=== PATIENT | male | born 1980 | race African-American/Black ===

== ENCOUNTER 2016-12-01 16:29 | Emergency (ER) | payer SELFPAY ==
[2016-12-01 16:43] VITALS: BMI 23.6
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
[2016-12-01 17:39] LABS: BLOOD UREA NITROGEN 13 mg/dL (7-18); CARBON DIOXIDE 15.6 mmol/L (21-32); CHLORIDE 97 mmol/L (98-107); COR NA(FOR HYPERGLY) 141 mmol/L (136-145); CREATININE 1.16 mg/dL (0.70-1.30); GLUCOSE 123 mg/dL (65-99); SODIUM 140 mmol/L (136-145); eGFR BLACK RACES > 60 (>60); eGFR NON BLACK RACES > 60 (>60)
[2016-12-01 17:43] LABS: ALANINE AMINOTRANSFERASE 46 Units/L (12-78); ALBUMIN 4.5 g/dL (3.4-5.0); ALKALINE PHOSPHATASE 126 Units/L (46-116); ASPARTATE AMINO TRANSFERASE 76 Units/L (15-37); MAGNESIUM 2.3 mg/dL (1.7-2.9); TOTAL PROTEIN 8.7 g/dL (6.4-8.2)
[2016-12-01] MEDS ORDERED: DILANTIN INJ 100 MG VIAL IVP ONE (17:51)
[2016-12-01] MEDS ORDERED: CEREBYX INJ IVP ONE (18:02)
[2016-12-01 18:16] LABS: BASOPHILS # (AUTO) 0.1 X10^3/uL (0.0-0.1); BASOPHILS % (AUTO) 0.7 % (0.2-1.0); EOSINOPHILS # (AUTO) 0.1 x10^3/uL (0.0-0.2); EOSINOPHILS % (AUTO) 0.6 % (0.9-2.9); HEMOGLOBIN 14.6 g/dL (13.5-18.0); LYMPHOCYTES # (AUTO) 0.9 X10^3/uL (1.3-2.9); LYMPHOCYTES % (AUTO) 6.8 % (21.0-51.0); MEAN CORPUSCULAR HEMOGLOBIN 34.7 pg (27.0-34.0); MEAN PLATELET VOLUME 9.5 fL (7.4-11.0); MONOCYTES % (AUTO) 8.1 % (0.0-13.0); NEUTROPHILS # (AUTO) 10.7 x10^3/uL (2.2-4.8); NEUTROPHILS % (AUTO) 83.8 % (42.0-75.0); PLATELET COUNT 89 X10^3/uL (150.0-450.0); RED BLOOD COUNT 4.22 X10^6/uL (4.7-6.0); RED CELL DISTRIBUTION WIDTH 13.2 % (11.6-16.5); WHITE BLOOD COUNT 12.7 X10^3/uL (3.6-10.0)
[2016-12-01] MEDS ORDERED: NS 100 ML IV 100 ML IV ONE (18:18)
[2016-12-01] MEDS ORDERED: CEREBYX INJ ONE (18:19)
[2016-12-01 18:20] LABS: PLATELET MORPHOLOGY COMMENT NORMAL (NORMAL)
[2016-12-01 19:03] VITALS: BP 133/66
== END 2016-12-01 19:01 | disposition home or self-care (01) ==
LOC: ER 16:29
DX: R56.9 Unspecified convulsions (principal)
CPT/HCPCS: 36415; 80053; 80185; 83735; 85025; 93041; 96365; 96374; 99283; S0078

== ENCOUNTER 2017-02-25 05:49 | Emergency (ER) | payer SELFPAY ==
[2017-02-25] MEDS ORDERED: NS 1000 ML 1,000 ML IV ONE ×2 (06:00→06:07)
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
[2017-02-25 06:05] VITALS: BMI 15.6
[2017-02-25] MEDS ORDERED: NS 1000 ML 1,000 ML ONE ×2 (06:06→08:16)
[2017-02-25 06:15] LABS: BILIRUBIN,URINE NEGATIVE (NEGATIVE); BLOOD/HEMOGLOBIN,URINE NEGATIVE (NEGATIVE); GLUCOSE, URINE NEGATIVE (NEGATIVE); KETONES,URINE NEGATIVE (NEGATIVE); LEUKOCYTE ESTERASE ,URINE NEGATIVE (NEGATIVE); NITRITES,URINE NEGATIVE (NEGATIVE); PROTEIN,URINE NEGATIVE (NEGATIVE); UROBILINOGEN,URINE NORMAL (NORMAL)
[2017-02-25] MEDS ORDERED: ZOFRAN INJ 4 MG VIAL IVP ONE (06:22)
[2017-02-25] MEDS ORDERED: ZOFRAN INJ 4 MG VIAL ONE (06:23)
[2017-02-25 06:25] LABS: APPEARANCE,URINE CLEAR (CLEAR); BACTERIA,URINE NEGATIVE /HPF (NEGATIVE); COLOR,URINE YELLOW (YELLOW); RBC,URINE NONE SEEN /HPF (NEGATIVE); SQUAMOUS EPITHELIAL CELL,UR RARE /HPF (NEGATIVE)
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
[2017-02-25] MEDS ORDERED: HYDROGEN PEROXIDE 3% ONE (06:45)
[2017-02-25 06:52] LABS: BASOPHILS % (AUTO) 0.6 % (0.2-1.0); EOSINOPHILS % (AUTO) 0.6 % (0.9-2.9); HEMOGLOBIN 11.7 g/dL (13.5-18.0); LYMPHOCYTES # (AUTO) 2.3 X10^3/uL (1.3-2.9); LYMPHOCYTES % (AUTO) 34.8 % (21.0-51.0); MEAN CORPUSCULAR HEMOGLOBIN 35.5 pg (27.0-34.0); MEAN CORPUSCULAR HGB CONC 34.4 g/dL (33.0-35.0); MEAN CORPUSCULAR VOLUME 103.2 fL (80.0-100.0); MEAN PLATELET VOLUME 7.4 fL (7.4-11.0); MONOCYTES # (AUTO) 0.4 x10^3/uL (0.3-0.8); MONOCYTES % (AUTO) 6.5 % (0.0-13.0); NEUTROPHILS # (AUTO) 3.9 x10^3/uL (2.2-4.8); NEUTROPHILS % (AUTO) 57.5 % (42.0-75.0); PLATELET COUNT 166 X10^3/uL (150.0-450.0); RED CELL DISTRIBUTION WIDTH 12.9 % (11.6-16.5); WHITE BLOOD COUNT 6.7 X10^3/uL (3.6-10.0)
[2017-02-25 07:01] LABS: ALANINE AMINOTRANSFERASE 24 Units/L (12-78); ALBUMIN 3.5 g/dL (3.4-5.0); ALKALINE PHOSPHATASE 86 Units/L (46-116); ASPARTATE AMINO TRANSFERASE 29 Units/L (15-37); BLOOD UREA NITROGEN 4 mg/dL (7-18); CALCIUM 7.6 mg/dL (8.5-10.1); CARBON DIOXIDE 23.7 mmol/L (21-32); CHLORIDE 106 mmol/L (98-107); COR NA(FOR HYPERGLY) 145 mmol/L (136-145); CREATININE 0.67 mg/dL (0.70-1.30); GLUCOSE 112 mg/dL (65-99); SODIUM 145 mmol/L (136-145); TOTAL PROTEIN 6.8 g/dL (6.4-8.2); eGFR BLACK RACES > 60 (>60); eGFR NON BLACK RACES > 60 (>60)
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
[2017-02-25] MEDS ORDERED: KEFLEX CAP 500 MG PO ONE (07:29)
[2017-02-25] MEDS ORDERED: ROCEPHIN VIAL 1 GM 1 GM in NS 50 ML IV + SPIKE MINIBAG* 50 ML IV ONE (08:00)
[2017-02-25] MEDS ORDERED: ROCEPHIN 1 GM IV PREMIX * OUT OF STOCK 50 ML IV ONE (08:01)
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
[2017-02-25] MEDS ORDERED: DILANTIN INJ 100 MG VIAL IVP ONE (08:08)
[2017-02-25] MEDS ORDERED: CEREBYX INJ IVP ONE (08:11)
[2017-02-25] MEDS ORDERED: CEREBYX INJ ONE ×2 (08:12)
[2017-02-25] MEDS ORDERED: NS 50 ML IV 50 ML IV ONE (08:13)
[2017-02-25 08:27] VITALS: BP 106/55
== END 2017-02-25 09:14 | disposition short-term general hospital (02) ==
LOC: ER 05:49
PROC: 0T9B70Z Drainage of Bladder with Drainage Device, Via Natural or Artificial Opening (ICD-10-PCS; principal; 2017-02-25)
DX: S21.112A Laceration without foreign body of left front wall of thorax without penetration into thoracic cavity, initial encounter (principal); F14.10 Cocaine abuse, uncomplicated; F10.10 Alcohol abuse, uncomplicated; X99.9XXA Assault by unspecified sharp object, initial encounter; Y92.9 Unspecified place or not applicable
CPT/HCPCS: 36415; 51702; 71010; 71250; 72125; 80053; 80185; 80307; 80320; 81001; 85025; 93005; 93010; 93041; 96365; 96367; 96374; 96375; 99284; 99285; A4222; Q2009; S0078; G0434; G6040; J0696; J2405

== ENCOUNTER 2017-06-29 23:51 | Emergency (ER) | payer SELFPAY ==
[2017-06-30 00:19] VITALS: BP 128/71; BMI 23.5
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
[2017-06-30] MEDS ORDERED: XYLOCAINE 1 % (PLAIN) ONE (00:36)
[2017-06-30] MEDS ORDERED: HIBICLENS WASH ONE (00:37)
[2017-06-30] MEDS ORDERED: HYDROGEN PEROXIDE 3% ONE (00:59)
[2017-06-30] MEDS ORDERED: ADACEL TDaP IM ONE ×2 (01:12→01:13)
== END 2017-06-30 01:23 | disposition home or self-care (01) ==
LOC: ER 23:51
PROC: 0WQ20ZZ Repair Face, Open Approach (ICD-10-PCS; principal; 2017-06-29)
DX: S01.112A Laceration without foreign body of left eyelid and periocular area, initial encounter (principal); W19.XXXA Unspecified fall, initial encounter; Y92.019 Unspecified place in single-family (private) house as the place of occurrence of the external cause
CPT/HCPCS: 90471; 99282; J2001

== ENCOUNTER 2018-01-06 15:13 | Emergency (ER) | payer SELFPAY ==
[2018-01-06 15:22] VITALS: BP 121/80; BMI 25.8
--- NOTE | 2018-01-06 15:22 | DR.GENAD ---
HPI - PCP Primary Care Physician: [id number] - Complaint/Symptoms Chief Complaint Doctors Comments: Patient presented to the ED with complaint of having a seizure just prior to arrival. The witness of the seizure is not present. Patient states that he had seizure since 2013. He is on phenytoin and takes 400mg daily. The witness reports via phone that he was shaking for 2-3 minutes. Patient is followed by local physician. No recent seizure. PMH - PMH Past Medical History: Asthma, Seizures Past Surgical History: Yes Surgical History: Abdominal Surgery - Family History Family Medical History: [place], Coronary Artery Disease, Hypertension - Social History Do you use any recreational Drugs:: Yes (thc) ROS - Review of Systems Eyes: No Symptoms Reported ENTM: No Symptoms Reported Respiratoy: No Symptoms Reported Cardiovascular: No Symptoms Reported Gastrointestinal/Abdominal: No Symptoms Reported Genitourinary: No Symptoms Reported Neurological: No Symptoms Reported Musculoskeletal: No Symptoms Reported Integumentary: No Symptoms Reported Hematologic/Lymphatic: No Symptoms Reported Endocrine: No Symptoms Reported Psychiatric: No Symptoms Reported All Other Systems: Reviewed and Negative PE - Vital Signs Vitals: Temperature 98.6 F Pulse Rate 111 Respiratory Rate 18 Blood Pressure [Left Arm] 106/55 Blood Pressure [Right Arm] 137/62 Blood Pressure 121/80 O2 Sat by Pulse Oximetry 100 - General Limitations: No Limitations General Appearance: Alert, In No Apparent Distress - Head Head Exam: Normal Inspection, Atraumatic - Eyes Eye exam: Normal Appearance, PERRL, EOMI - ENT ENT Exam: Normal Exam, Mucous Membranes Moist TM/Canal Exam: Bilateral Normal Nose Exam: Normal Nose Exam Mouth Exam: Normal Inspection Throat Exam: Normal Inspection - Neck Neck Exam: Normal Inspection, Full ROM - Chest Chest Inspection: Normal Inspection, Symmetric Chest Wall Rise - Respiratory Respiratory Exam: Normal Lung Sounds Bilat Respiratory Exam: Bilateral Clear to Auscultation - Cardiovascular Cardiovascular Exam: Regular Rate, Normal Rhythm - Abdominal Exam Abdominal Exam: Normal Inspection Abdominal Tenderness: negative: RUQ, RLQ, LUQ, LLQ, Epigastrium, Suprapubic, Diffuse, Mild, Moderate, Severe, Other - Extremities Extremities Exam: Normal Inspection, Full ROM - Back Back Exam: Normal Inspection, Full ROM - Neurologic Neurological Exam: Alert, Oriented X3, CN II-XII Intact - Psychiatric Psychiatric Exam: Normal Affect, Normal Mood - Skin Skin Exam: Warm, Dry, Intact Course - Treatment Treatment: Dilantin 300mg po - Reevaluation 1st: Improved - Education/Counseling Educated On: Treatment, Diagnosis, Prognosis, Needs for Follow Up ROR - Labs Reviewed Result Diagrams: 01/06/18 15:40 01/06/18 15:40 Laboratory: WBC 8.8 X10^3/uL (3.6-10.0) 01/06/18 15:40 RBC 3.84 X10^6/uL (4.7-6.0) L 01/06/18 15:40 Hgb 13.9 g/dL (13.5-18.0) 01/06/18 15:40 Hct 40.3 % (42.0-54.0) L 01/06/18 15:40 MCV 104.8 fL (80.0-100.0) H 01/06/18 15:40 MCH 36.2 pg (27.0-34.0) H 01/06/18 15:40 MCHC 34.5 g/dL (33.0-35.0) 01/06/18 15:40 RDW 12.8 % (11.6-16.5) 01/06/18 15:40 Plt Count 178 X10^3/uL (150.0-450.0) 01/06/18 15:40 MPV 7.5 fL (7.4-11.0) 01/06/18 15:40 Neut % (Auto) 72.2 % (42.0-75.0) 01/06/18 15:40 Lymph % (Auto) 17.0 % (21.0-51.0) L 01/06/18 15:40 [place] % (Auto) 9.4 % (0.0-13.0) 01/06/18 15:40 Eos % (Auto) 0.9 % (0.9-2.9) 01/06/18 15:40 Baso % (Auto) 0.5 % (0.2-1.0) 01/06/18 15:40 Neut # (Auto) 6.4 x10^3/uL (2.2-4.8) H 01/06/18 15:40 Lymph # (Auto) 1.5 X10^3/uL (1.3-2.9) 01/06/18 15:40 [place] # (Auto) 0.8 x10^3/uL (0.3-0.8) 01/06/18 15:40 Eos # (Auto) 0.1 x10^3/uL (0.0-0.2) 01/06/18 15:40 Baso # (Auto) 0.0 X10^3/uL (0.0-0.1) 01/06/18 15:40 Absolute Nucleated RBC 0.1 /100WBC 01/06/18 15:40 Sodium 137 mmol/L (136-145) 01/06/18 15:40 Corrected Sodium TNP 01/06/18 15:40 Potassium 3.4 mmol/L (3.5-5.1) L 01/06/18 15:40 Chloride 97 mmol/L (98-107) L 01/06/18 15:40 Carbon Dioxide 24.1 mmol/L (21-32) 01/06/18 15:40 BUN 7 mg/dL (7-18) 01/06/18 15:40 Creatinine 1.11 mg/dL (0.70-1.30) 01/06/18 15:40 Est GFR (MDRD) Af Amer > 60 (>60) 01/06/18 15:40 Est GFR (MDRD) Non-Af > 60 (>60) 01/06/18 15:40 Glucose 94 mg/dL (65-99) 01/06/18 15:40 Calcium 8.5 mg/dL (8.5-10.1) 01/06/18 15:40 Corrected Calcium TNP 01/06/18 15:40 Total Bilirubin 0.30 mg/dL (0.2-1.0) 01/06/18 15:40 AST 78 Units/L (15-37) H 01/06/18 15:40 ALT 42 Units/L (12-78) 01/06/18 15:40 Alkaline Phosphatase 122 Units/L (46-116) H 01/06/18 15:40 Total Protein 8.4 g/dL (6.4-8.2) H 01/06/18 15:40 Albumin 4.2 g/dL (3.4-5.0) 01/06/18 15:40 Globulin 4.2 g/dL (2.5-4.5) 01/06/18 15:40 Albumin/Globulin Ratio 1.0 Ratio (1.1-2.1) L 01/06/18 15:40 Specimen Type Clean catch urine 01/06/18 15:55 Urine Color Dark yellow (YELLOW) 01/06/18 15:55 Urine Appearance Slightly hazy (CLEAR) 01/06/18 15:55 Urine pH 6.5 (5.0 - 8.0) 01/06/18 15:55 Ur Specific [place] 1.020 (1.000-1.030) 01/06/18 15:55 Urine Protein 3+ (NEGATIVE) 01/06/18 15:55 Urine Glucose (UA) Negative (NEGATIVE) 01/06/18 15:55 Urine Ketones 1+ (NEGATIVE) 01/06/18 15:55 Urine Occult Blood 3+ (NEGATIVE) 01/06/18 15:55 Urine Nitrite Negative (NEGATIVE) 01/06/18 15:55 Urine Bilirubin Negative (NEGATIVE) 01/06/18 15:55 Urine Urobilinogen 1+ (NORMAL) 01/06/18 15:55 Ur Leukocyte Esterase Negative (NEGATIVE) 01/06/18 15:55 Urine RBC 0-2 /HPF (NONE SEEN) 01/06/18 15:55 Urine WBC None seen /HPF (NONE SEEN) 01/06/18 15:55 Ur Squamous Epith Cells Rare /HPF (NEGATIVE) 01/06/18 15:55 Urine Bacteria Negative /HPF (NEGATIVE) 01/06/18 15:55 Hyaline Casts Rare /LPF (NEGATIVE) 01/06/18 15:55 Ur Culture Indicated? No/not indicated 01/06/18 15:55 Phenytoin 7.0 ug/mL (10-20) L 01/06/18 15:40 - Diagnosis Discharge Problem: Seizure, Subtherapeutic serum dilantin level - Discharge Plan Condition: Stable - Follow ups/Referrals Follow ups/Referrals: BLAKE LEIJA [Primary Care Provider] - 3 days - Instructions
[2018-01-06 15:50] LABS: BASOPHILS % (AUTO) 0.5 % (0.2-1.0); EOSINOPHILS # (AUTO) 0.1 x10^3/uL (0.0-0.2); EOSINOPHILS % (AUTO) 0.9 % (0.9-2.9); HEMATOCRIT 40.3 % (42.0-54.0); HEMOGLOBIN 13.9 g/dL (13.5-18.0); LYMPHOCYTES # (AUTO) 1.5 X10^3/uL (1.3-2.9); MEAN CORPUSCULAR HEMOGLOBIN 36.2 pg (27.0-34.0); MEAN CORPUSCULAR HGB CONC 34.5 g/dL (33.0-35.0); MEAN CORPUSCULAR VOLUME 104.8 fL (80.0-100.0); MEAN PLATELET VOLUME 7.5 fL (7.4-11.0); MONOCYTES # (AUTO) 0.8 x10^3/uL (0.3-0.8); MONOCYTES % (AUTO) 9.4 % (0.0-13.0); NEUTROPHILS # (AUTO) 6.4 x10^3/uL (2.2-4.8); NEUTROPHILS % (AUTO) 72.2 % (42.0-75.0); PLATELET COUNT 178 X10^3/uL (150.0-450.0); RED BLOOD COUNT 3.84 X10^6/uL (4.7-6.0); RED CELL DISTRIBUTION WIDTH 12.8 % (11.6-16.5); WHITE BLOOD COUNT 8.8 X10^3/uL (3.6-10.0)
[2018-01-06 16:01] LABS: BILIRUBIN,URINE NEGATIVE (NEGATIVE); BLOOD/HEMOGLOBIN,URINE 3+ (NEGATIVE); GLUCOSE, URINE NEGATIVE (NEGATIVE); KETONES,URINE 1+ (NEGATIVE); LEUKOCYTE ESTERASE ,URINE NEGATIVE (NEGATIVE); NITRITES,URINE NEGATIVE (NEGATIVE); PH,URINE 6.5 (5.0 - 8.0); PROTEIN,URINE 3+ (NEGATIVE); UROBILINOGEN,URINE 1+ (NORMAL)
[2018-01-06 16:02] LABS: ALANINE AMINOTRANSFERASE 42 Units/L (12-78); ALBUMIN 4.2 g/dL (3.4-5.0); ALKALINE PHOSPHATASE 122 Units/L (46-116); ASPARTATE AMINO TRANSFERASE 78 Units/L (15-37); BLOOD UREA NITROGEN 7 mg/dL (7-18); CALCIUM 8.5 mg/dL (8.5-10.1); CARBON DIOXIDE 24.1 mmol/L (21-32); CHLORIDE 97 mmol/L (98-107); CREATININE 1.11 mg/dL (0.70-1.30); SODIUM 137 mmol/L (136-145); TOTAL PROTEIN 8.4 g/dL (6.4-8.2); eGFR BLACK RACES > 60 (>60); eGFR NON BLACK RACES > 60 (>60)
[2018-01-06 16:03] LABS: APPEARANCE,URINE SLIGHTLY HAZY (CLEAR); COLOR,URINE DARK YELLOW (YELLOW)
[2018-01-06] MEDS ORDERED: DILANTIN CAP 100 MG EXT REL PO ONE ×2 (16:08)
[2018-01-06 16:11] LABS: RBC,URINE 0-2 /HPF (NONE SEEN)
[2018-01-06 16:12] LABS: BACTERIA,URINE NEGATIVE /HPF (NEGATIVE); HYALINE CASTS, URINE RARE /LPF (NEGATIVE); SQUAMOUS EPITHELIAL CELL,UR RARE /HPF (NEGATIVE)
== END 2018-01-06 17:04 | disposition home or self-care (01) ==
LOC: ER 15:15
DX: R56.9 Unspecified convulsions (principal); R89.2 Abnormal level of other drugs, medicaments and biological substances in specimens from other organs, systems and tissues
CPT/HCPCS: 36415; 80053; 80185; 80307; 81001; 85025; 96365; 99282; 99283; G0434

== ENCOUNTER 2023-03-28 09:45 | Inpatient (IN) ==
--- NOTE | 2023-03-28 10:06 | DR.EXTPAIN ---
HPI Time seen Time Seen by Provider: 03/28/23 10:06 HPI Comment HPI Comment: Patient is 43yr old male in er after seizure. Patient is agitated and confused. Started having seizure . Patients mother said he has being confused for few days. He has urinary incontinence and is having increasing w eakness. Patient is hallucinating mainly visual. He has history of alcohol dependency. drinking less currently. Complaint/Symptoms Chief Complaint Doctor Comments: Seizure, agitated and confused. COVID-19 Coronavirus risk:travel/contact w/high risk person: No Has patient experienced Coronavirus symptoms: No Nurses notes reviewed Nurses Notes Review: Yes PMH PMH Past Medical History: Seizures Past Surgical History: Yes Surgical History: Abdominal Surgery Family History Family Medical History: [place], Coronary Artery Disease and Hypertension Social History Do you use any recreational Drugs:: Yes ROS Review of Systems Constitutional: Other (Agitated..); negative Fever Eyes: No Symptoms Reported ENTM: No Symptoms Reported Respiratoy: No Symptoms Reported; negative Moist Cough or Short of Breath Cardiovascular: No Symptoms Reported; negative Chest Pain Gastrointestinal/Abdominal: No Symptoms Reported Genitourinary: No Symptoms Reported Neurological: Seizure Musculoskeletal: No Symptoms Reported Integumentary: No Symptoms Reported Hematologic/Lymphatic: No Symptoms Reported Endocrine: No Symptoms Reported Psychiatric: No Symptoms Reported All Other Systems: Reviewed and Negative PE Vital Signs Vitals: Vital Signs Temperature 98.1 F Pulse Rate 120 Pulse Rate 123 Pulse Rate 118 Pulse Rate 119 Pulse Rate 121 Pulse Rate 121 Pulse Rate 122 Pulse Rate 127 Pulse Rate 126 Pulse Rate 125 Pulse Rate 127 Pulse Rate 134 Pulse Rate 134 Pulse Rate 138 Pulse Rate 135 Pulse Rate 145 Respiratory Rate 20 Respiratory Rate 37 Respiratory Rate 32 Respiratory Rate 38 Respiratory Rate 33 Respiratory Rate 39 Respiratory Rate 41 Respiratory Rate 34 Respiratory Rate 44 Respiratory Rate 40 Respiratory Rate 33 Respiratory Rate 30 Respiratory Rate 34 Respiratory Rate 40 Respiratory Rate 43 Respiratory Rate 35 Respiratory Rate 24 Blood Pressure 118/67 O2 Sat by Pulse Oximetry 97 O2 Sat by Pulse Oximetry 98 O2 Sat by Pulse Oximetry 97 O2 Sat by Pulse Oximetry 97 O2 Sat by Pulse Oximetry 97 O2 Sat by Pulse Oximetry 98 O2 Sat by Pulse Oximetry 96 O2 Sat by Pulse Oximetry 96 O2 Sat by Pulse Oximetry 95 O2 Sat by Pulse Oximetry 97 O2 Sat by Pulse Oximetry 97 General Limitations: No Limitations General Appearance: In No Apparent Distress and Other (AMS.) Head Head Exam: Normal Inspection, Atraumatic and Normocephalic Eyes Eye exam: Normal Appearance and PERRL; negative Scleral Icterus or Conjunctival Injection ENT ENT Exam: Normal Exam, Normal External Ear Exam and TM's Normal Bilaterally; negative Normal Oropharynx Neck Neck Exam: Normal Inspection and Trachea Midline; negative Tenderness Chest Chest Inspection: Normal Inspection and Symmetric Chest Wall Rise; negative Tenderness Respiratory Respiratory Exam: Normal Lung Sounds Bilat; negative Accessory Muscle Use, Chest Wall Tenderness or Respiratory Distress Respiratory Exam: Bilateral: Clear to Auscultation Cardiovascular Cardiovascular Exam: Regular Rate, Normal Rhythm and Normal Heart Sounds; negative Systolic Murmur or Diastolic Murmur Abdominal Exam Abdominal Exam: Normal Inspection, Normal Bowel Sounds and Soft; negative Tenderness Extremities Extremities Exam: Normal Inspection and Normal Capillary Refill Back Back Exam: Normal Inspection; negative (R) CVA Tenderness or (L) CVA Tenderness Neurological Neurological Exam: Alert; negative Oriented X3 or Motor Sensory Deficit Psychiatric Psychiatric Exam: Agitated Skin Skin Exam: Intact MDM Differential Diagnosis Differential Diagnosis: Other (Seizure, AMS, hallucination, alcohol withdrawal, electrolyte imbalance, CVA.) COURSE Treatment Treatment: See orders done while patient was in er. NS 1L IV bolus while in er. Merline estrada in er to see patient. will admit patient. Orders done by him. Consultation Consultation Comments: Discussed patient with dr. Rick. He will admit patient. ROR Labs Reviewed Laboratory Results Reviewed?: Yes 04/02/23 05:33 04/02/23 05:33 Laboratory: 03/28/23 11:07 Blood Blood Culture - Final 03/28/23 10:50 Blood Blood Culture - Final 03/28/23 16:32 Sputum - Expectorated Sputum Sputum Culture - Final 03/28/23 16:32 Sputum - Expectorated Sputum - Final WBC 10.3 X10^3/uL (3.6-10.0) H 03/30/23 05:39 RBC 2.76 X10^6/uL (4.7-6.0) L 03/30/23 05:39 Hgb 9.7 g/dL (13.5-18.0) L 03/30/23 05:39 Hct 28.2 % (42.0-54.0) L 03/30/23 05:39 MCV 102.0 fL (80.0-100.0) H 03/30/23 05:39 MCH 35.0 pg (27.0-34.0) H 03/30/23 05:39 MCHC 34.3 g/dL (33.0-35.0) 03/30/23 05:39 RDW 13.0 % (11.6-16.5) 03/30/23 05:39 Plt Count 310 X10^3/uL (150.0-450.0) 03/30/23 05:39 Plt Count Comment Adequate (ADEQUATE) 03/28/23 14:26 MPV 7.1 fL (7.4-11.0) L 03/30/23 05:39 Neut % (Auto) 78.9 % (42.0-75.0) H 03/30/23 05:39 Lymph % (Auto) 7.5 % (21.0-51.0) L 03/30/23 05:39 [place] % (Auto) 12.7 % (0.0-13.0) 03/30/23 05:39 Eos % (Auto) 0.7 % (0.9-2.9) L 03/30/23 05:39 Baso % (Auto) 0.2 % (0.2-1.0) 03/30/23 05:39 Neut # (Auto) 8.1 x10^3/uL (2.2-4.8) H 03/30/23 05:39 Lymph # (Auto) 0.8 X10^3/uL (1.3-2.9) L 03/30/23 05:39 [place] # (Auto) 1.3 x10^3/uL (0.3-0.8) H 03/30/23 05:39 Eos # (Auto) 0.1 x10^3/uL (0.0-0.2) 03/30/23 05:39 Baso # (Auto) 0.0 X10^3/uL (0.0-0.1) 03/30/23 05:39 Absolute Nucleated RBC 0.1 /100WBC 03/30/23 05:39 Total Counted 100 03/28/23 14:26 Neutrophils % (Manual) 83 % (39-76) H 03/28/23 14:26 Band Neutrophils % 2 % (0-10) 03/28/23 14:26 Lymphocytes % (Manual) 7 % (13-43) L 03/28/23 14:26 Monocytes % (Manual) 8 % (4-9) 03/28/23 14:26 Plt Morphology Comment Normal (NORMAL) 03/28/23 14:26 RBC Morphology Normal (NORMAL) 03/28/23 14:26 Sodium 134 mmol/L (136-145) L 03/30/23 05:39 Corrected Sodium TNP 03/30/23 05:39 Potassium 2.8 mmol/L (3.5-5.1) L* 03/30/23 05:39 Chloride 97 mmol/L (98-107) L 03/30/23 05:39 Carbon Dioxide 29.3 mmol/L (21-32) 03/30/23 05:39 BUN 3 mg/dL (7-18) L 03/30/23 05:39 Creatinine 0.48 mg/dL (0.70-1.30) L 03/30/23 05:39 Est GFR (MDRD) Af Amer > 60 (>60) 03/30/23 05:39 Est GFR (MDRD) Non-Af > 60 (>60) 03/30/23 05:39 Glucose 88 mg/dL (65-99) 03/30/23 05:39 Lactic Acid 1.9 mmol/L (0.4-2.0) 03/28/23 10:51 Calcium 8.3 mg/dL (8.5-10.1) L 03/30/23 05:39 Corrected Calcium 9.6 mg/dL (8.5-10.1) 03/30/23 05:39 Magnesium 2.4 mg/dL (2.0-2.9) 03/29/23 05:40 Total Bilirubin 0.60 mg/dL (0.2-1.0) 03/30/23 05:39 AST 56 Units/L (15-37) H 03/30/23 05:39 ALT 20 Units/L (12-78) 03/30/23 05:39 Alkaline Phosphatase 95 Units/L (46-116) 03/30/23 05:39 Ammonia 15 umol/L (11-32) 03/28/23 10:00 Creatine Kinase 84 Units/L (39-308) 03/28/23 10:00 Troponin I High Sens < 4.0 ng/L (4.0-60.0) L 03/28/23 10:00 B-Natriuretic Peptide 94.7 pg/mL (0-79) H 03/28/23 10:00 Total Protein 7.2 g/dL (6.4-8.2) 03/30/23 05:39 Albumin 2.4 g/dL (3.4-5.0) L 03/30/23 05:39 Globulin 4.8 g/dL (2.5-4.5) H 03/30/23 05:39 Albumin/Globulin Ratio 0.5 Ratio (1.1-2.1) L 03/30/23 05:39 Amylase 14 Units/L (25-115) L 03/28/23 10:00 Lipase 18 Units/L (73-393) L 03/28/23 10:00 Vitamin B12 740 pg/mL (193-986) 03/28/23 10:00 Folate 15.6 ng/mL (>8.6) 03/28/23 10:00 Specimen Type Clean catch urine 03/29/23 10:00 Urine Color [place] (YELLOW) 03/29/23 10:00 Urine Appearance Clear (CLEAR) 03/29/23 10:00 Urine pH 6.0 (5.0 - 8.0) 03/29/23 10:00 Ur Specific [place] 1.015 (1.000-1.030) 03/29/23 10:00 Urine Protein 1+ (NEGATIVE) 03/29/23 10:00 Urine Glucose (UA) Negative (NEGATIVE) 03/29/23 10:00 Urine Ketones Negative (NEGATIVE) 03/29/23 10:00 Urine Blood Negative (NEGATIVE) 03/29/23 10:00 Urine Nitrite Negative (NEGATIVE) 03/29/23 10:00 Urine Bilirubin 1+ (NEGATIVE) 03/29/23 10:00 Urine Urobilinogen 4+ (NORMAL) 03/29/23 10:00 Ur Leukocyte Esterase Negative (NEGATIVE) 03/29/23 10:00 Urine RBC None seen /HPF (0-3) 03/29/23 10:00 Urine WBC 0-2 /HPF (0-5) 03/29/23 10:00 Ur Squamous Epith Cells Rare /HPF (NEGATIVE) 03/29/23 10:00 Urine Bacteria Trace /HPF (NEGATIVE) 03/29/23 10:00 Urine Mucus Numerous /HPF (NEGATIVE) 03/29/23 10:00 Ur Culture Indicated? No/not indicated 03/29/23 10:00 Urine Opiates Screen Negative (NEG=<300) 03/29/23 10:00 Urine Methadone Screen Negative (NEG=<300) 03/29/23 10:00 Ur Barbiturates Screen Positive (NEG=<200) 03/29/23 10:00 Levetiracetam 12 ug/mL (10-40) 03/28/23 10:00 Ur Phencyclidine Scrn Negative (NEG=<25) 03/29/23 10:00 Ur Amphetamines Screen Negative (NEG=<1000) 03/29/23 10:00 U Benzodiazepines Scrn Negative (NEG=<200) 03/29/23 10:00 Urine Cocaine Screen Negative (NEG=<300) 03/29/23 10:00 U Marijuana (THC) Screen Negative (NEG=<50) 03/29/23 10:00 Ethyl Alcohol mg/dL < 3 mg/dL (0-19.9) 03/28/23 14:26 Resp Viral Panel (PCR) See scanned report 03/29/23 10:09 XRAY XRAY Interpreted by: Radiologist (Report noted.) Opioid Opioid Risk Tool Family Hx of Substance Abuse: Alcohol Personal Hx of Substance Abuse: Alcohol Age (Lonnie box if 16-45): Yes History of Preadolescent Sexual Abuse: No Total: 1 Total Score Risk Category: Low Risk Copyright: [facility] predicting aberrant behaviors Discharge Plan Diagnosis Discharge Problem: Hypokalemia, Hyponatremia Pneumonia Qualifiers: Pneumonia type: due to unspecified organism Laterality: right Lung location: lower lobe of lung Qualified Code(s): J18.9 - Pneumonia, unspecified organism Alcohol withdrawal seizure Qualifiers: Complication of substance-induced condition: with unspecified complication Qualified Code(s): F10.939 - Alcohol use, unspecified with withdrawal, unspecified AMS (altered mental status) Qualifiers: Altered mental status type: unspecified Qualified Code(s): R41.82 - Altered mental status, unspecified Discharge Plan Patient Disposition: ADMITTED INPATIENT Condition: Stable Discharge Comment: admitted observation
[2023-03-28] MEDS ORDERED: THIAMINE HCL INJ IM ONE (10:30)
[2023-03-28] MEDS ORDERED: NS 1,000 ML IV 1,000 ML IV ONE (10:30)
--- NOTE | 2023-03-28 10:42 | EKG ---
Test Reason : tachycardia Blood Pressure : */* mmHG Vent. Rate : 133 BPM Atrial Rate : 136 BPM P-R Int : 128 ms QRS Dur : 76 ms QT Int : 374 ms P-R-T Axes : * -24 25 degrees QTc Int : 556 ms Sinus tachycardia Otherwise normal ECG No previous ECGs available Confirmed by Richie Copeland ([id number]) on 03/30/2023 7:24:20 AM Referred By: Confirmed By: Richie Copeland
[2023-03-28] MEDS ORDERED: NS 1,000 ML IV 1,000 ML ONE ×2 (10:47→20:25)
[2023-03-28] MEDS ORDERED: ZOSYN VIAL 3.375 GRAMS 3.375 G in NS 100 ML IV 100 ML IV ONE (10:51)
[2023-03-28 10:53] LABS: BASOPHILS # (AUTO) 0.1 X10^3/uL (0.0-0.1); HEMOGLOBIN 10.9 g/dL (13.5-18.0); MEAN PLATELET VOLUME 8.2 fL (7.4-11.0)
[2023-03-28 10:58] LABS: BASOPHILS % (AUTO) 0.6 % (0.2-1.0); HEMATOCRIT 31.4 % (42.0-54.0); LYMPHOCYTES % (AUTO) 6.5 % (21.0-51.0); MEAN CORPUSCULAR HEMOGLOBIN 35.1 pg (27.0-34.0); MEAN CORPUSCULAR HGB CONC 34.7 g/dL (33.0-35.0); MEAN CORPUSCULAR VOLUME 101.4 fL (80.0-100.0); MONOCYTES # (AUTO) 1.6 x10^3/uL (0.3-0.8); MONOCYTES % (AUTO) 9.9 % (0.0-13.0); NEUTROPHILS # (AUTO) 13.1 x10^3/uL (2.2-4.8); PLATELET COUNT 208 X10^3/uL (150.0-450.0); RED CELL DISTRIBUTION WIDTH 13.3 % (11.6-16.5); WHITE BLOOD COUNT 15.8 X10^3/uL (3.6-10.0)
[2023-03-28 11:13] LABS: AMYLASE 14 Units/L (25-115); CHLORIDE 88 mmol/L (98-107); GLUCOSE 106 mg/dL (65-99); eGFR NON BLACK RACES > 60 (>60)
[2023-03-28 11:19] LABS: BAND NEUTROPHILS % 1 % (0-10)
[2023-03-28 11:21] LABS: PLATELET MORPHOLOGY COMMENT NORMAL (NORMAL)
[2023-03-28 11:43] LABS: AMMONIA 15 umol/L (11-32)
[2023-03-28 11:50] LABS: ALANINE AMINOTRANSFERASE 21 Units/L (12-78); ALBUMIN 2.9 g/dL (3.4-5.0); ALKALINE PHOSPHATASE 119 Units/L (46-116); ASPARTATE AMINO TRANSFERASE 57 Units/L (15-37); BLOOD UREA NITROGEN 6 mg/dL (7-18); CALCIUM 8.5 mg/dL (8.5-10.1); CARBON DIOXIDE 28.4 mmol/L (21-32); COR CA(FOR HYPOALB) 9.4 mg/dL (8.5-10.1); CREATINE KINASE 84 Units/L (39-308); CREATININE 0.67 mg/dL (0.70-1.30); LIPASE 18 Units/L (73-393); SODIUM 129 mmol/L (136-145); TOTAL PROTEIN 7.9 g/dL (6.4-8.2)
[2023-03-28 11:53] LABS: POTASSIUM 2.8 mmol/L (3.5-5.1)
--- NOTE | 2023-03-28 12:43 | RAD ---
HISTORYSeizure coughSTUDYPortable AP chestCOMPARISONJanuary 2021FINDINGSHeart size normal with clear left chest. There is a diffuse airspace opacity involving the lower half of the right lung without discrete mass or obvious pleural effusion.IMPRESSIONParenchymal opacity right lower lung consistent with pneumonia. Follow-up indicated.Electronically signed by: LEAH COLLINS (Mar 28, 2023 12:40:24)
--- NOTE | 2023-03-28 12:45 | CT ---
HISTORYamsSTUDYCT brain without IV contrastCOMPARISONNoneTECHNIQUEMultiple axial images of the brain were obtained without IV contrast. Dose reduction techniques including Automated Exposure Control (AEC) and adjustment of mA and kV were utilized.FINDINGSVisualized portions of the paranasal sinuses and mastoid air cells are clear. No calvarial fracture is seen. No acute intracranial hemorrhage or mass effect is seen. There is prominent diffuse volume loss in the brain with compensatory enlargement of the ventricular system. Normal variant margaux cisterna magna.No evidence of acute CVA. Encephalomalacia and gliosis are suspected in the inferior right frontal lobe likely from old CVA or other injury. Likely mild chronic small vessel ischemic changes are present in the supratentorial white matter and basal ganglia.IMPRESSIONOld ischemic changes are seen with prominent diffuse volume loss in the brain. No acute intracranial abnormality is seen.Electronically signed by: Ish Garza (Mar 28, 2023 12:44:03)
[2023-03-28] MEDS ORDERED: K-DUR TAB 20 MEQ PO ONE ×2 (13:54→13:55)
[2023-03-28] MEDS ORDERED: PHENOBARBITAL SODIUM INJ 65 MG VIAL IM PRN (14:19)
[2023-03-28] MEDS ORDERED: MAALOX or MYLANTA PO PRN (14:19)
[2023-03-28] MEDS ORDERED: MILK OF MAGNESIA PO PRN (14:19)
[2023-03-28] MEDS ORDERED: KAOPECTATE (NEW FORMULA) PO PRN (14:19)
[2023-03-28] MEDS ORDERED: MOTRIN TAB 800 MG PO PRN (14:19)
[2023-03-28] MEDS ORDERED: ROCEPHIN VIAL 1 GRAM IM ONE (14:23)
[2023-03-28 14:41] LABS: BASOPHILS # (AUTO) 0.4 X10^3/uL (0.0-0.1); BASOPHILS % (AUTO) 2.4 % (0.2-1.0); HEMATOCRIT 28.6 % (42.0-54.0); HEMOGLOBIN 9.8 g/dL (13.5-18.0); LYMPHOCYTES # (AUTO) 0.8 X10^3/uL (1.3-2.9); LYMPHOCYTES % (AUTO) 4.7 % (21.0-51.0); MEAN CORPUSCULAR HEMOGLOBIN 34.8 pg (27.0-34.0); MEAN CORPUSCULAR HGB CONC 34.3 g/dL (33.0-35.0); MEAN CORPUSCULAR VOLUME 101.5 fL (80.0-100.0); MEAN PLATELET VOLUME 7.8 fL (7.4-11.0); MONOCYTES # (AUTO) 1.6 x10^3/uL (0.3-0.8); MONOCYTES % (AUTO) 9.6 % (0.0-13.0); NEUTROPHILS # (AUTO) 13.6 x10^3/uL (2.2-4.8); NEUTROPHILS % (AUTO) 83.3 % (42.0-75.0); PLATELET COUNT 207 X10^3/uL (150.0-450.0); RED BLOOD COUNT 2.81 X10^6/uL (4.7-6.0); WHITE BLOOD COUNT 16.3 X10^3/uL (3.6-10.0)
[2023-03-28 15:10] LABS: BAND NEUTROPHILS % 2 % (0-10)
[2023-03-28 15:12] LABS: PLATELET MORPHOLOGY COMMENT NORMAL (NORMAL)
[2023-03-28 16:05] VITALS: BMI 21.4
[2023-03-28] MEDS ORDERED: XOPENEX 1.25 MG/3 ML NEBULE NEB ONE (16:19)
[2023-03-28] MEDS: XOPENEX 1.25 MG/3 ML NEBULE NEB SCH ×2 (16:31→17:11)
[2023-03-28] MEDS ORDERED: NS 1,000 ML IV 1,000 ML with MAGNESIUM SULFATE 50% INJ VIAL 1 G, MVI INJ (ADULT) 10 ML IV SCH ×3 (17:00)
[2023-03-28] MEDS: CELEXA PO SCH (17:27)
[2023-03-28] MEDS: PHENOBARBITAL TAB 30 MG (32.4MG) PO SCH ×2 (17:28→20:55)
[2023-03-28] MEDS ORDERED: MAGNESIUM SULFATE 50% INJ VIAL ONE (20:25)
[2023-03-28] MEDS: AMBIEN PO SCH (20:56)
[2023-03-28] MEDS: KEPPRA TAB 500 MG PO SCH (20:56)
[2023-03-28] MEDS: PULMICORT NEB TX 0.5 MG NEB SCH (21:05)
[2023-03-28] MEDS ORDERED: NS 100 ML IV 100 ML ONE (21:30)
[2023-03-28] MEDS: MAGNESIUM SULFATE 1 GRAM/100 mL PREMIX 1 G/100 ML BAG IV SCH (22:15)
[2023-03-29] MEDS: XOPENEX 1.25 MG/3 ML NEBULE NEB SCH ×4 (00:09→16:18)
[2023-03-29] MEDS: MAGNESIUM SULFATE 1 GRAM/100 mL PREMIX 1 G/100 ML BAG IV SCH ×3 (05:14→21:23)
[2023-03-29 06:10] LABS: BASOPHILS % (AUTO) 0.3 % (0.2-1.0); EOSINOPHILS % (AUTO) 0.2 % (0.9-2.9); HEMATOCRIT 27.3 % (42.0-54.0); HEMOGLOBIN 9.4 g/dL (13.5-18.0); LYMPHOCYTES # (AUTO) 0.9 X10^3/uL (1.3-2.9); LYMPHOCYTES % (AUTO) 7.1 % (21.0-51.0); MEAN CORPUSCULAR HGB CONC 34.5 g/dL (33.0-35.0); MEAN CORPUSCULAR VOLUME 101.2 fL (80.0-100.0); MEAN PLATELET VOLUME 7.6 fL (7.4-11.0); MONOCYTES # (AUTO) 1.7 x10^3/uL (0.3-0.8); NEUTROPHILS # (AUTO) 10.3 x10^3/uL (2.2-4.8); NEUTROPHILS % (AUTO) 79.4 % (42.0-75.0); PLATELET COUNT 247 X10^3/uL (150.0-450.0)
[2023-03-29 06:23] LABS: ALANINE AMINOTRANSFERASE 13 Units/L (12-78); ALBUMIN 2.5 g/dL (3.4-5.0); ALKALINE PHOSPHATASE 99 Units/L (46-116); ASPARTATE AMINO TRANSFERASE 28 Units/L (15-37); BLOOD UREA NITROGEN 5 mg/dL (7-18); CALCIUM 8.3 mg/dL (8.5-10.1); CARBON DIOXIDE 29.7 mmol/L (21-32); CHLORIDE 94 mmol/L (98-107); COR CA(FOR HYPOALB) 9.5 mg/dL (8.5-10.1); CREATININE 0.52 mg/dL (0.70-1.30); GLUCOSE 90 mg/dL (65-99); MAGNESIUM 2.4 mg/dL (2.0-2.9); SODIUM 133 mmol/L (136-145); TOTAL PROTEIN 7.4 g/dL (6.4-8.2); eGFR NON BLACK RACES > 60 (>60)
[2023-03-29 06:25] LABS: POTASSIUM 2.4 mmol/L (3.5-5.1)
[2023-03-29] MEDS ORDERED: CONSULT PHARMACY - POTASSIUM & MAGNESIUM XX SCH (07:00)
[2023-03-29] MEDS ORDERED: MAGNESIUM SULFATE 50% INJ VIAL ONE ×2 (08:05→21:34)
[2023-03-29] MEDS: PULMICORT NEB TX 0.5 MG NEB SCH (08:19)
[2023-03-29] MEDS ORDERED: K-DUR TAB 20 MEQ PO ONE ×2 (10:00→12:04)
[2023-03-29 10:15] LABS: BILIRUBIN,URINE 1+ (NEGATIVE); BLOOD/HEMOGLOBIN,URINE NEGATIVE (NEGATIVE); GLUCOSE, URINE NEGATIVE (NEGATIVE); KETONES,URINE NEGATIVE (NEGATIVE); LEUKOCYTE ESTERASE ,URINE NEGATIVE (NEGATIVE); NITRITES,URINE NEGATIVE (NEGATIVE); PROTEIN,URINE 1+ (NEGATIVE); UROBILINOGEN,URINE 4+ (NORMAL)
[2023-03-29 10:29] LABS: APPEARANCE,URINE CLEAR (CLEAR); COLOR,URINE ORANGE (YELLOW)
[2023-03-29 10:32] LABS: BACTERIA,URINE TRACE /HPF (NEGATIVE); RBC,URINE NONE SEEN /HPF (0-3); SQUAMOUS EPITHELIAL CELL,UR RARE /HPF (NEGATIVE)
[2023-03-29] MEDS: MAGNESIUM SULFATE IV SCH ×3 (10:50)
[2023-03-29] MEDS: [UNRECOGNIZED DRUG - OTHER] IV SCH ×3 (10:50)
[2023-03-29] MEDS: NS IV SCH ×3 (10:50)
[2023-03-29] MEDS: KCL IV SCH ×3 (10:50)
[2023-03-29] MEDS: FOLIC ACID TAB 1 MG PO SCH (10:51)
[2023-03-29] MEDS: KEPPRA TAB 500 MG PO SCH ×2 (10:51→21:24)
[2023-03-29] MEDS: CELEXA PO SCH (10:51)
[2023-03-29] MEDS: PHENOBARBITAL TAB 30 MG (32.4MG) PO SCH ×4 (10:51→21:24)
[2023-03-29] MEDS: THIAMINE HCL INJ IM SCH (10:52)
[2023-03-29] MEDS: AMBIEN PO SCH (21:24)
[2023-03-29] MEDS ORDERED: NS + KCL 40 MEQ/L 1,000 ML IV ONE (21:34)
[2023-03-29] MEDS ORDERED: MVI INJ (ADULT) IV ONE (21:35)
[2023-03-30] MEDS: XOPENEX 1.25 MG/3 ML NEBULE NEB SCH ×6 (00:10→18:32)
[2023-03-30] MEDS: MAGNESIUM SULFATE 1 GRAM/100 mL PREMIX 1 G/100 ML BAG IV SCH ×2 (05:11→13:42)
[2023-03-30 06:13] LABS: BASOPHILS % (AUTO) 0.2 % (0.2-1.0); EOSINOPHILS # (AUTO) 0.1 x10^3/uL (0.0-0.2); EOSINOPHILS % (AUTO) 0.7 % (0.9-2.9); HEMATOCRIT 28.2 % (42.0-54.0); HEMOGLOBIN 9.7 g/dL (13.5-18.0); LYMPHOCYTES # (AUTO) 0.8 X10^3/uL (1.3-2.9); LYMPHOCYTES % (AUTO) 7.5 % (21.0-51.0); MEAN CORPUSCULAR HGB CONC 34.3 g/dL (33.0-35.0); MEAN PLATELET VOLUME 7.1 fL (7.4-11.0); MONOCYTES # (AUTO) 1.3 x10^3/uL (0.3-0.8); MONOCYTES % (AUTO) 12.7 % (0.0-13.0); NEUTROPHILS # (AUTO) 8.1 x10^3/uL (2.2-4.8); NEUTROPHILS % (AUTO) 78.9 % (42.0-75.0); PLATELET COUNT 310 X10^3/uL (150.0-450.0); RED BLOOD COUNT 2.76 X10^6/uL (4.7-6.0); WHITE BLOOD COUNT 10.3 X10^3/uL (3.6-10.0)
[2023-03-30 06:21] LABS: ALANINE AMINOTRANSFERASE 20 Units/L (12-78); ALBUMIN 2.4 g/dL (3.4-5.0); ALKALINE PHOSPHATASE 95 Units/L (46-116); ASPARTATE AMINO TRANSFERASE 56 Units/L (15-37); BLOOD UREA NITROGEN 3 mg/dL (7-18); CALCIUM 8.3 mg/dL (8.5-10.1); CARBON DIOXIDE 29.3 mmol/L (21-32); CHLORIDE 97 mmol/L (98-107); COR CA(FOR HYPOALB) 9.6 mg/dL (8.5-10.1); CREATININE 0.48 mg/dL (0.70-1.30); GLUCOSE 88 mg/dL (65-99); SODIUM 134 mmol/L (136-145); TOTAL PROTEIN 7.2 g/dL (6.4-8.2); eGFR NON BLACK RACES > 60 (>60)
[2023-03-30 06:24] LABS: POTASSIUM 2.8 mmol/L (3.5-5.1)
[2023-03-30] MEDS ORDERED: CONSULT PHARMACY - POTASSIUM & MAGNESIUM XX SCH (07:00)
[2023-03-30] MEDS: KEPPRA TAB 500 MG PO SCH ×2 (08:36→20:07)
[2023-03-30] MEDS: CELEXA PO SCH (08:37)
[2023-03-30] MEDS: FOLIC ACID TAB 1 MG PO SCH (08:37)
[2023-03-30] MEDS: PHENOBARBITAL TAB 30 MG (32.4MG) PO SCH ×4 (08:37→20:08)
[2023-03-30] MEDS: THIAMINE HCL INJ IM SCH (08:38)
[2023-03-30] MEDS ORDERED: K-DUR TAB 20 MEQ PO SCH (09:00)
[2023-03-30] MEDS: [UNRECOGNIZED DRUG - OTHER] IV SCH ×6 (16:33)
[2023-03-30] MEDS: NS IV SCH ×6 (16:33)
[2023-03-30] MEDS: KCL IV SCH ×6 (16:33)
[2023-03-30] MEDS: MAGNESIUM SULFATE IV SCH ×6 (16:33)
[2023-03-30] MEDS: AMBIEN PO SCH (20:07)
[2023-03-31] MEDS: LIBRIUM PO PRN ×2 (00:07→15:26)
[2023-03-31] MEDS: XOPENEX 1.25 MG/3 ML NEBULE NEB SCH ×4 (00:08→17:15)
[2023-03-31] MEDS: KCL IV SCH ×6 (00:24→04:05)
[2023-03-31] MEDS: NS IV SCH ×6 (00:24→04:05)
[2023-03-31] MEDS: [UNRECOGNIZED DRUG - OTHER] IV SCH ×6 (00:24→04:05)
[2023-03-31] MEDS: MAGNESIUM SULFATE IV SCH ×6 (00:24→04:05)
[2023-03-31 06:27] LABS: BASOPHILS # (AUTO) 0.1 X10^3/uL (0.0-0.1); BASOPHILS % (AUTO) 0.7 % (0.2-1.0); EOSINOPHILS # (AUTO) 0.2 x10^3/uL (0.0-0.2); EOSINOPHILS % (AUTO) 1.5 % (0.9-2.9); HEMATOCRIT 27.2 % (42.0-54.0); HEMOGLOBIN 9.3 g/dL (13.5-18.0); LYMPHOCYTES # (AUTO) 1.1 X10^3/uL (1.3-2.9); LYMPHOCYTES % (AUTO) 11.4 % (21.0-51.0); MEAN CORPUSCULAR HEMOGLOBIN 34.8 pg (27.0-34.0); MEAN CORPUSCULAR HGB CONC 34.2 g/dL (33.0-35.0); MEAN CORPUSCULAR VOLUME 101.9 fL (80.0-100.0); MEAN PLATELET VOLUME 7.4 fL (7.4-11.0); MONOCYTES # (AUTO) 1.6 x10^3/uL (0.3-0.8); MONOCYTES % (AUTO) 16.3 % (0.0-13.0); NEUTROPHILS # (AUTO) 7.1 x10^3/uL (2.2-4.8); NEUTROPHILS % (AUTO) 70.1 % (42.0-75.0); PLATELET COUNT 425 X10^3/uL (150.0-450.0); RED BLOOD COUNT 2.67 X10^6/uL (4.7-6.0); WHITE BLOOD COUNT 10.1 X10^3/uL (3.6-10.0)
[2023-03-31 06:35] LABS: ALANINE AMINOTRANSFERASE 32 Units/L (12-78); ALBUMIN 2.4 g/dL (3.4-5.0); ALKALINE PHOSPHATASE 111 Units/L (46-116); ASPARTATE AMINO TRANSFERASE 78 Units/L (15-37); BLOOD UREA NITROGEN 1 mg/dL (7-18); CALCIUM 8.9 mg/dL (8.5-10.1); CARBON DIOXIDE 24.4 mmol/L (21-32); CHLORIDE 97 mmol/L (98-107); COR CA(FOR HYPOALB) 10.2 mg/dL (8.5-10.1); CREATININE 0.49 mg/dL (0.70-1.30); GLUCOSE 82 mg/dL (65-99); POTASSIUM 4.4 mmol/L (3.5-5.1); SODIUM 130 mmol/L (136-145); TOTAL PROTEIN 7.4 g/dL (6.4-8.2); eGFR NON BLACK RACES > 60 (>60)
[2023-03-31] MEDS: CELEXA PO SCH (10:05)
[2023-03-31] MEDS: FOLIC ACID TAB 1 MG PO SCH (10:06)
[2023-03-31] MEDS: KEPPRA TAB 500 MG PO SCH ×2 (10:06→20:29)
[2023-03-31] MEDS: PHENOBARBITAL TAB 30 MG (32.4MG) PO SCH ×2 (10:06→12:52)
[2023-03-31] MEDS: THIAMINE HCL INJ IM SCH ×2 (10:14→12:16)
[2023-03-31] MEDS: NICOTINE PATCH TD SCH (12:12)
[2023-03-31] MEDS: NS 1,000 ML IV 1,000 ML with MAGNESIUM SULFATE 50% INJ VIAL 1 G, MVI INJ (ADULT) 10 ML IV SCH ×3 (15:25)
[2023-03-31] MEDS: PHENOBARBITAL TAB 15 MG (16.2MG) PO SCH ×2 (17:22→20:29)
[2023-03-31] MEDS: AMBIEN PO SCH (20:29)
[2023-04-01] MEDS: NS 1,000 ML IV 1,000 ML with MAGNESIUM SULFATE 50% INJ VIAL 1 G, MVI INJ (ADULT) 10 ML IV SCH ×6 (00:32→04:21)
[2023-04-01] MEDS: LIBRIUM PO PRN (04:23)
[2023-04-01] MEDS: XOPENEX 1.25 MG/3 ML NEBULE NEB SCH ×4 (06:00→16:30)
[2023-04-01 06:22] LABS: BASOPHILS # (AUTO) 0.1 X10^3/uL (0.0-0.1); BASOPHILS % (AUTO) 0.7 % (0.2-1.0); EOSINOPHILS # (AUTO) 0.2 x10^3/uL (0.0-0.2); EOSINOPHILS % (AUTO) 1.2 % (0.9-2.9); HEMATOCRIT 32.3 % (42.0-54.0); LYMPHOCYTES # (AUTO) 1.5 X10^3/uL (1.3-2.9); LYMPHOCYTES % (AUTO) 9.8 % (21.0-51.0); MEAN CORPUSCULAR HEMOGLOBIN 34.5 pg (27.0-34.0); MEAN CORPUSCULAR HGB CONC 33.9 g/dL (33.0-35.0); MEAN CORPUSCULAR VOLUME 101.6 fL (80.0-100.0); MEAN PLATELET VOLUME 7.4 fL (7.4-11.0); MONOCYTES # (AUTO) 1.9 x10^3/uL (0.3-0.8); MONOCYTES % (AUTO) 13.2 % (0.0-13.0); NEUTROPHILS # (AUTO) 11.1 x10^3/uL (2.2-4.8); NEUTROPHILS % (AUTO) 75.1 % (42.0-75.0); PLATELET COUNT 685 X10^3/uL (150.0-450.0); RED BLOOD COUNT 3.18 X10^6/uL (4.7-6.0); RED CELL DISTRIBUTION WIDTH 13.3 % (11.6-16.5); WHITE BLOOD COUNT 14.8 X10^3/uL (3.6-10.0)
[2023-04-01 06:25] LABS: ALANINE AMINOTRANSFERASE 37 Units/L (12-78); ALKALINE PHOSPHATASE 124 Units/L (46-116); ASPARTATE AMINO TRANSFERASE 55 Units/L (15-37); BLOOD UREA NITROGEN 2 mg/dL (7-18); CALCIUM 9.8 mg/dL (8.5-10.1); CARBON DIOXIDE 23.8 mmol/L (21-32); CHLORIDE 95 mmol/L (98-107); COR CA(FOR HYPOALB) 10.6 mg/dL (8.5-10.1); CREATININE 0.58 mg/dL (0.70-1.30); GLUCOSE 79 mg/dL (65-99); POTASSIUM 3.9 mmol/L (3.5-5.1); SODIUM 130 mmol/L (136-145); TOTAL PROTEIN 8.7 g/dL (6.4-8.2); eGFR NON BLACK RACES > 60 (>60)
[2023-04-01] MEDS ORDERED: CONSULT PHARMACY - POTASSIUM & MAGNESIUM XX SCH (07:00)
[2023-04-01] MEDS ORDERED: NS + KCL 20 MEQ/L 1,000 ML with MAGNESIUM SULFATE 50% INJ VIAL 1 G, MVI INJ (ADULT) 10 ML IV SCH ×3 (09:00)
[2023-04-01] MEDS: PHENOBARBITAL TAB 15 MG (16.2MG) PO SCH ×4 (09:51→20:44)
[2023-04-01] MEDS: FOLIC ACID TAB 1 MG PO SCH (09:51)
[2023-04-01] MEDS: NICOTINE PATCH TD SCH (09:52)
[2023-04-01] MEDS: KEPPRA TAB 500 MG PO SCH ×2 (09:52→20:44)
[2023-04-01] MEDS: CELEXA PO SCH (09:52)
[2023-04-01] MEDS ORDERED: NS 500 ML IV 500 ML IV ONE (10:24)
[2023-04-01] MEDS: ROCEPHIN VIAL 1 GRAM 1 G in NS 100 ML IV 100 ML IV SCH (10:26)
[2023-04-01] MEDS: AMPICILLIN VIAL 1 GRAM 1 G in NS 100 ML IV 100 ML IV SCH ×3 (11:20→20:44)
--- NOTE | 2023-04-01 14:37 | RAD ---
HISTORYPNEUMONIA Relevant Clinical InformationSTUDYCHEST, 1 VIEW03/28/2023FINDINGSCardiac silhouette is normal in size. Right basilar airspace disease persists and appears minimally improved since prior exam. Left lung remains clear. No significant pleural effusion or pneumothorax.IMPRESSIONPersistent and minimally improved right basilar airspace disease, compatible with provided history of pneumonia. Clinical correlation and continued PA/lateral radiographic follow-up to complete resolution recommended.Electronically signed by: MAE VIDALES (Apr 01, 2023 14:35:18)
[2023-04-02] MEDS: XOPENEX 1.25 MG/3 ML NEBULE NEB SCH ×5 (00:15→17:52)
[2023-04-02] MEDS: AMPICILLIN VIAL 1 GRAM 1 G in NS 100 ML IV 100 ML IV SCH ×4 (02:22→20:52)
[2023-04-02 06:13] LABS: BASOPHILS # (AUTO) 0.1 X10^3/uL (0.0-0.1); BASOPHILS % (AUTO) 0.8 % (0.2-1.0); EOSINOPHILS # (AUTO) 0.1 x10^3/uL (0.0-0.2); HEMATOCRIT 26.7 % (42.0-54.0); HEMOGLOBIN 9.1 g/dL (13.5-18.0); LYMPHOCYTES # (AUTO) 1.4 X10^3/uL (1.3-2.9); LYMPHOCYTES % (AUTO) 10.9 % (21.0-51.0); MEAN CORPUSCULAR HEMOGLOBIN 34.9 pg (27.0-34.0); MEAN CORPUSCULAR VOLUME 102.8 fL (80.0-100.0); MONOCYTES # (AUTO) 1.6 x10^3/uL (0.3-0.8); MONOCYTES % (AUTO) 12.1 % (0.0-13.0); NEUTROPHILS # (AUTO) 9.8 x10^3/uL (2.2-4.8); NEUTROPHILS % (AUTO) 75.2 % (42.0-75.0); PLATELET COUNT 707 X10^3/uL (150.0-450.0); RED CELL DISTRIBUTION WIDTH 13.4 % (11.6-16.5)
[2023-04-02 06:24] LABS: ALANINE AMINOTRANSFERASE 23 Units/L (12-78); ALBUMIN 2.3 g/dL (3.4-5.0); ALKALINE PHOSPHATASE 97 Units/L (46-116); ASPARTATE AMINO TRANSFERASE 32 Units/L (15-37); BLOOD UREA NITROGEN 3 mg/dL (7-18); CALCIUM 8.6 mg/dL (8.5-10.1); CARBON DIOXIDE 24.4 mmol/L (21-32); CHLORIDE 97 mmol/L (98-107); CREATININE 0.54 mg/dL (0.70-1.30); GLUCOSE 93 mg/dL (65-99); POTASSIUM 3.4 mmol/L (3.5-5.1); SODIUM 132 mmol/L (136-145); eGFR NON BLACK RACES > 60 (>60)
[2023-04-02] MEDS ORDERED: CONSULT PHARMACY - POTASSIUM & MAGNESIUM XX SCH ×2 (07:00→08:00)
[2023-04-02] MEDS ORDERED: KCL IV SCH ×3 (08:00)
[2023-04-02] MEDS ORDERED: MAGNESIUM SULFATE IV SCH ×3 (08:00)
[2023-04-02] MEDS ORDERED: [UNRECOGNIZED DRUG - OTHER] IV SCH ×3 (08:00)
[2023-04-02] MEDS ORDERED: NS IV SCH ×3 (08:00)
[2023-04-02] MEDS: ROCEPHIN VIAL 1 GRAM 1 G in NS 100 ML IV 100 ML IV SCH (08:37)
[2023-04-02] MEDS: KEPPRA TAB 500 MG PO SCH ×2 (08:38→20:53)
[2023-04-02] MEDS: PHENOBARBITAL TAB 15 MG (16.2MG) PO SCH ×4 (08:38→20:53)
[2023-04-02] MEDS: NICOTINE PATCH TD SCH (08:39)
[2023-04-02] MEDS: FOLIC ACID TAB 1 MG PO SCH (08:46)
[2023-04-02] MEDS: CELEXA PO SCH (08:46)
[2023-04-02] MEDS ORDERED: K-DUR TAB 20 MEQ PO SCH (09:00)
[2023-04-02] MEDS: NS + KCL 20 MEQ/L 1,000 ML with MAGNESIUM SULFATE 50% INJ VIAL 1 G IV SCH ×4 (12:06→17:10)
[2023-04-03] MEDS: XOPENEX 1.25 MG/3 ML NEBULE NEB SCH ×2 (00:02→05:40)
[2023-04-03 00:43] VITALS: RESP 20
[2023-04-03] MEDS: NS + KCL 20 MEQ/L 1,000 ML with MAGNESIUM SULFATE 50% INJ VIAL 1 G IV SCH ×4 (01:08→09:54)
[2023-04-03 06:19] LABS: BASOPHILS # (AUTO) 0.1 X10^3/uL (0.0-0.1); BASOPHILS % (AUTO) 0.8 % (0.2-1.0); EOSINOPHILS # (AUTO) 0.2 x10^3/uL (0.0-0.2); EOSINOPHILS % (AUTO) 1.3 % (0.9-2.9); HEMATOCRIT 26.5 % (42.0-54.0); LYMPHOCYTES # (AUTO) 1.4 X10^3/uL (1.3-2.9); LYMPHOCYTES % (AUTO) 11.1 % (21.0-51.0); MEAN CORPUSCULAR HEMOGLOBIN 35.1 pg (27.0-34.0); MEAN CORPUSCULAR HGB CONC 34.1 g/dL (33.0-35.0); MEAN CORPUSCULAR VOLUME 102.9 fL (80.0-100.0); MEAN PLATELET VOLUME 6.8 fL (7.4-11.0); MONOCYTES # (AUTO) 1.4 x10^3/uL (0.3-0.8); MONOCYTES % (AUTO) 11.7 % (0.0-13.0); NEUTROPHILS # (AUTO) 9.2 x10^3/uL (2.2-4.8); NEUTROPHILS % (AUTO) 75.1 % (42.0-75.0); PLATELET COUNT 784 X10^3/uL (150.0-450.0); RED BLOOD COUNT 2.58 X10^6/uL (4.7-6.0); RED CELL DISTRIBUTION WIDTH 13.4 % (11.6-16.5); WHITE BLOOD COUNT 12.2 X10^3/uL (3.6-10.0)
[2023-04-03 06:38] LABS: ALANINE AMINOTRANSFERASE 23 Units/L (12-78); ALBUMIN 2.2 g/dL (3.4-5.0); ALKALINE PHOSPHATASE 107 Units/L (46-116); ASPARTATE AMINO TRANSFERASE 31 Units/L (15-37); BLOOD UREA NITROGEN 2 mg/dL (7-18); CALCIUM 8.2 mg/dL (8.5-10.1); CARBON DIOXIDE 23.1 mmol/L (21-32); CHLORIDE 99 mmol/L (98-107); COR CA(FOR HYPOALB) 9.6 mg/dL (8.5-10.1); CREATININE 0.54 mg/dL (0.70-1.30); GLUCOSE 101 mg/dL (65-99); MAGNESIUM 2.1 mg/dL (2.0-2.9); POTASSIUM 4.2 mmol/L (3.5-5.1); SODIUM 132 mmol/L (136-145); TOTAL PROTEIN 6.9 g/dL (6.4-8.2); eGFR NON BLACK RACES > 60 (>60)
[2023-04-03] MEDS: CELEXA PO SCH (09:43)
[2023-04-03] MEDS: KEPPRA TAB 500 MG PO SCH (09:43)
[2023-04-03] MEDS: PHENOBARBITAL TAB 15 MG (16.2MG) PO SCH (09:43)
[2023-04-03] MEDS: FOLIC ACID TAB 1 MG PO SCH (09:43)
[2023-04-03] MEDS: AMPICILLIN VIAL 1 GRAM 1 G in NS 100 ML IV 100 ML IV SCH ×2 (09:53→09:54)
[2023-04-03] MEDS: NICOTINE PATCH TD SCH (09:54)
[2023-04-03] MEDS: ROCEPHIN VIAL 1 GRAM 1 G in NS 100 ML IV 100 ML IV SCH (09:54)
[2023-04-03 10:43] VITALS: BP 94/56; PULSE 94; TEMP 98.4; O2SAT 100
== END 2023-04-03 10:00 | disposition home or self-care (01) | DRG 194 ==
LOC: ER 09:45 → MED/SURG 09:45
PROVIDERS: ADMIT Obstetrics & Gynecology Obstetrics; ATTEND Obstetrics & Gynecology Obstetrics

== ENCOUNTER 2023-05-20 22:57 | Inpatient (IN) ==
--- NOTE | 2023-05-20 23:04 | EKG ---
Test Reason : Chest Pain Blood Pressure : */* mmHG Vent. Rate : 103 BPM Atrial Rate : 103 BPM P-R Int : 320 ms QRS Dur : 76 ms QT Int : 372 ms P-R-T Axes : -16 -25 32 degrees QTc Int : 487 ms Sinus tachycardia Nonspecific T wave abnormality Abnormal ECG When compared with ECG of 28-MAR-2023 10:40, CA interval has increased Nonspecific T wave abnormality, worse in Inferior leads T wave inversion more evident in Anterolateral leads Confirmed by Richie Copeland ([id number]) on 05/25/2023 8:05:05 AM Referred By: Confirmed By: Richie Copeland
[2023-05-20 23:17] LABS: ABG ALLEN TEST POS; ABG HCO3 21.6 mmol/L (22-26)
[2023-05-20 23:41] LABS: BASOPHILS # (AUTO) 0.1 X10^3/uL (0.0-0.1); MONOCYTES # (AUTO) 0.6 x10^3/uL (0.3-0.8)
[2023-05-20 23:51] LABS: BASOPHILS % (AUTO) 0.4 % (0.2-1.0); EOSINOPHILS % (AUTO) 0.1 % (0.9-2.9); HEMATOCRIT 30.1 % (42.0-54.0); HEMOGLOBIN 9.9 g/dL (13.5-18.0); LYMPHOCYTES # (AUTO) 0.9 X10^3/uL (1.3-2.9); LYMPHOCYTES % (AUTO) 4.3 % (21.0-51.0); MEAN CORPUSCULAR HEMOGLOBIN 29.4 pg (27.0-34.0); MEAN CORPUSCULAR HGB CONC 32.8 g/dL (33.0-35.0); MEAN CORPUSCULAR VOLUME 89.8 fL (80.0-100.0); MEAN PLATELET VOLUME 6.1 fL (7.4-11.0); MONOCYTES % (AUTO) 2.7 % (0.0-13.0); NEUTROPHILS # (AUTO) 19.1 x10^3/uL (2.2-4.8); NEUTROPHILS % (AUTO) 92.5 % (42.0-75.0); PLATELET COUNT 760 X10^3/uL (150.0-450.0); RED BLOOD COUNT 3.35 X10^6/uL (4.7-6.0); RED CELL DISTRIBUTION WIDTH 16.3 % (11.6-16.5); WHITE BLOOD COUNT 20.7 X10^3/uL (3.6-10.0)
[2023-05-21 00:02] LABS: BAND NEUTROPHILS % 6 % (0-10)
[2023-05-21 00:03] LABS: PLATELET MORPHOLOGY COMMENT NORMAL (NORMAL)
[2023-05-21 00:04] LABS: ALANINE AMINOTRANSFERASE 24 Units/L (12-78); ALBUMIN 1.9 g/dL (3.4-5.0); ALKALINE PHOSPHATASE 166 Units/L (46-116); ASPARTATE AMINO TRANSFERASE 22 Units/L (15-37); BLOOD UREA NITROGEN 5 mg/dL (7-18); CALCIUM 8.5 mg/dL (8.5-10.1); CARBON DIOXIDE 24.7 mmol/L (21-32); CHLORIDE 101 mmol/L (98-107); COR CA(FOR HYPOALB) 10.2 mg/dL (8.5-10.1); CREATINE KINASE 9 Units/L (39-308); GLUCOSE 101 mg/dL (65-99); POTASSIUM 4.2 mmol/L (3.5-5.1); SODIUM 136 mmol/L (136-145); TOTAL PROTEIN 8.3 g/dL (6.4-8.2); eGFR NON BLACK RACES > 60 (>60)
[2023-05-21] MEDS ORDERED: NS 1,000 ML IV 1,000 ML ONE ×2 (00:06→01:54)
[2023-05-21] MEDS ORDERED: NS 1,000 ML IV 1,000 ML IV ONE (00:07)
--- NOTE | 2023-05-21 00:18 | DR.CP ---
HPI Time Seen Time Seen by Provider: 05/21/23 00:16 PCP Primary Care Physician: LEIJA Complaint Chief Complaint Doctor Comments: Patient was admitted from 04/30/2023 to 05/08/2023 for treatment of a Rt lung pneumonia. Patient was d/c with levaquin po. Patient has been coughing constantly for 3 days.He was unable to sleep at night because of the coughing,he has been nauseated.Patient became diaphoretic this evening and has been weak for 3 days therefore mother called EMS to get patient to the ED. Patient denies: Fever,rash,sob,hemoptysis,diarrhea,vomi ting.Patient has not used IVDA in 8 months and alcohol in 2 months. Chief Complaint:: PT TO ED VIA EMS C/O RIGHT UPPER CHEST PAIN. PATIENT IS SENSITIVE TO TOUCH ON THE RIGHT SIDE. PT RECENTLY HOSPITALIZED HERE X 7 DAYS FOR PNEUMONIA. COVID-19 Coronavirus risk:travel/contact w/high risk person: No Has patient experienced Coronavirus symptoms: No Source History Provided: Patient and Family Member Mode of Arrival Mode of Arrival: Stretcher Timing Onset of Chief Complaint: 05/20/23 Location Chest Pain Radiation Location: None and Right Arm Associated Signs and Symptoms Associated Signs and Symptoms: None PMH PMH Past Medical History: Yes Past Medical History: Seizures Past Surgical History: Yes Surgical History: Abdominal Surgery Family History History of Family Medical Conditions: Yes Family Medical History: Coronary Artery Disease and Hypertension Social History Type of Tobacco Use: Cigarettes Alcohol Use: Rarely Do you use any recreational Drugs:: No Lives With: Family Lives Where: Home Travel Risk Coronavirus risk:travel/contact w/high risk person: No Has patient experienced Coronavirus symptoms: No Infectious screening Have you traveled outside the country in the last 6 months?: No Isolation: Standard ROS Review of Systems Constitutional: Malaise and Weakness Eyes: No Symptoms Reported ENTM: No Symptoms Reported Respiratoy: Productive Cough (yellow sputum) Cardiovascular: Chest Pain (Rt chest pain) Gastrointestinal/Abdominal: Nausea; negative Abdominal Pain, Diarrhea or Vomiting Genitourinary: No Symptoms Reported Neurological: No Symptoms Reported Musculoskeletal: No Symptoms Reported Integumentary: No Symptoms Reported Hematologic/Lymphatic: No Symptoms Reported Endocrine: No Symptoms Reported Psychiatric: No Symptoms Reported All Other Systems: Reviewed and Negative PE Vitals Vitals: Vital Signs Temperature 98.2 F Pulse Rate 96 Pulse Rate 94 Pulse Rate 96 Pulse Rate 96 Pulse Rate 100 Pulse Rate 101 Pulse Rate 100 Pulse Rate 102 Pulse Rate 105 Pulse Rate 107 Pulse Rate 105 Pulse Rate 104 Pulse Rate 105 Pulse Rate 103 Pulse Rate 102 Respiratory Rate 31 Respiratory Rate 26 Respiratory Rate 27 Respiratory Rate 33 Respiratory Rate 30 Respiratory Rate 37 Respiratory Rate 20 Respiratory Rate 26 Respiratory Rate 26 Respiratory Rate 29 Respiratory Rate 33 Respiratory Rate 33 Respiratory Rate 31 Respiratory Rate 20 Respiratory Rate 28 Blood Pressure 93/56 Blood Pressure 90/54 Blood Pressure 99/57 O2 Sat by Pulse Oximetry 100 O2 Sat by Pulse Oximetry 99 O2 Sat by Pulse Oximetry 100 O2 Sat by Pulse Oximetry 100 O2 Sat by Pulse Oximetry 100 O2 Sat by Pulse Oximetry 99 O2 Sat by Pulse Oximetry 98 O2 Sat by Pulse Oximetry 99 O2 Sat by Pulse Oximetry 100 O2 Sat by Pulse Oximetry 98 O2 Sat by Pulse Oximetry 98 General Limitations: No Limitations General Appearance: Alert and In No Apparent Distress Head Head Exam: Normal Inspection Eyes Eye exam: Normal Appearance ENT ENT Exam: Normal Exam Chest Chest Inspection: Normal Inspection Respiratory Respiratory Exam: Normal Lung Sounds Bilat Respiratory Exam: Right: Rhonchi and Right: Decreased Breath Sounds, Upper: Miguel ar to Auscultation and Lower: Decreased Breath Sounds Cardiovascular Cardiovascular Exam: Regular Rate and Normal Rhythm Pulse: Normal Edema: Normal Abdominal Exam Abdominal Exam: Normal Inspection, Normal Bowel Sounds and Soft Extremities Extremities Exam: Normal Inspection Back Back Exam: Normal Inspection Neurologic Neurological Exam: Alert and Oriented X3 Psychiatric Psychiatric Exam: Normal Affect and Normal Mood Skin Skin Exam: Warm, Dry, Intact and Normal Color MDM Differential Diagnosis Differential Diagnosis: CHF, Pericarditis, Pneumonia (Sepsis) and Pulmonary Embolus COURSE Treatment Treatment: Patient was transported to a monitored room he was placed on a monitor and iv access x 2 was initiated,02 2L NC initiated.Patient's CXR revealed infiltrate consolidation in RUL and RLL. Blood cx/crp/lactic acid were ordered. Vancomycin 1500mg iv to cover MRSA/Zosyn 4.5g IV to cover psuedomonas /azithromycin 500mg Iv(pneumococcus) ordered.Patient's wbc is 20.7/CRP 134.1/Bld alcohol neg/UDS neg/ D-dimer 0.81.Patient is allergic to iodine therefore CTA was done in the ED. Patient with BP 98/55 in the ED and NS @100ml/hr was started after NS bolus was completed. EKG#1 revealed twave inversions in precordial leads/troponin #1 was <4.0ng. Ekg #2 NSR QT prolongation/troponin#2 <4.0ng.Patient and mother informed of plan to admit. Discussed patient with Dr Barnett. He has accepted patient to his service in the ICU. Patient has been stable in the ED ROR Labs Reviewed Laboratory Results Reviewed?: Yes 05/20/23 23:20 05/20/23 23:20 Laboratory: WBC 20.7 X10^3/uL (3.6-10.0) H 05/20/23 23:20 RBC 3.35 X10^6/uL (4.7-6.0) L 05/20/23 23:20 Hgb 9.9 g/dL (13.5-18.0) L 05/20/23 23:20 Hct 30.1 % (42.0-54.0) L 05/20/23 23:20 MCV 89.8 fL (80.0-100.0) 05/20/23 23:20 MCH 29.4 pg (27.0-34.0) 05/20/23 23:20 MCHC 32.8 g/dL (33.0-35.0) L 05/20/23 23:20 RDW 16.3 % (11.6-16.5) 05/20/23 23:20 Plt Count 760 X10^3/uL (150.0-450.0) H 05/20/23 23:20 Plt Count Comment Increased (ADEQUATE) 05/20/23 23:20 MPV 6.1 fL (7.4-11.0) L 05/20/23 23:20 Neut % (Auto) 92.5 % (42.0-75.0) H 05/20/23 23:20 Lymph % (Auto) 4.3 % (21.0-51.0) L 05/20/23 23:20 [place] % (Auto) 2.7 % (0.0-13.0) 05/20/23 23:20 Eos % (Auto) 0.1 % (0.9-2.9) L 05/20/23 23:20 Baso % (Auto) 0.4 % (0.2-1.0) 05/20/23 23:20 Neut # (Auto) 19.1 x10^3/uL (2.2-4.8) H 05/20/23 23:20 Lymph # (Auto) 0.9 X10^3/uL (1.3-2.9) L 05/20/23 23:20 [place] # (Auto) 0.6 x10^3/uL (0.3-0.8) 05/20/23 23:20 Eos # (Auto) 0.0 x10^3/uL (0.0-0.2) 05/20/23 23:20 Baso # (Auto) 0.1 X10^3/uL (0.0-0.1) 05/20/23 23:20 Absolute Nucleated RBC 0.0 /100WBC 05/20/23 23:20 Total Counted 100 05/20/23 23:20 Neutrophils % (Manual) 87 % (39-76) H 05/20/23 23:20 Band Neutrophils % 6 % (0-10) 05/20/23 23:20 Lymphocytes % (Manual) 4 % (13-43) L 05/20/23 23:20 Monocytes % (Manual) 3 % (4-9) L 05/20/23 23:20 Plt Morphology Comment Normal (NORMAL) 05/20/23 23:20 RBC Morphology Normal (NORMAL) 05/20/23 23:20 D-Dimer 0.81 ug/ml (0.0-0.57) H 05/20/23 23:20 Sample Site Lr 05/20/23 23:12 ABG pH 7.480 (7.35-7.45) H 05/20/23 23:12 ABG pCO2 29.0 mmHg (35.0-45.0) L 05/20/23 23:12 ABG pO2 72.0 mmHg (80.0-100.0) L 05/20/23 23:12 ABG HCO3 21.6 mmol/L (22-26) L 05/20/23 23:12 ABG O2 Saturation 95.0 % (90-100) 05/20/23 23:12 ABG Base Excess -1.0 mmol/L (-2.0-2.0) 05/20/23 23:12 Maury Test Pos 05/20/23 23:12 A-a Gradient 41.0 mmHg 05/20/23 23:12 FiO2 21.0 05/20/23 23:12 Blood Gas Comments Amaury well ae 05/20/23 23:12 Sodium 136 mmol/L (136-145) 05/20/23 23:20 Corrected Sodium TNP 05/20/23 23:20 Potassium 4.2 mmol/L (3.5-5.1) 05/20/23 23:20 Chloride 101 mmol/L (98-107) 05/20/23 23:20 Carbon Dioxide 24.7 mmol/L (21-32) 05/20/23 23:20 BUN 5 mg/dL (7-18) L 05/20/23 23:20 Creatinine 0.60 mg/dL (0.70-1.30) L 05/20/23 23:20 Est GFR (MDRD) Af Amer > 60 (>60) 05/20/23 23:20 Est GFR (MDRD) Non-Af > 60 (>60) 05/20/23 23:20 Glucose 101 mg/dL (65-99) H 05/20/23 23:20 Lactic Acid 2.0 mmol/L (0.4-2.0) 05/21/23 00:35 Calcium 8.5 mg/dL (8.5-10.1) 05/20/23 23:20 Corrected Calcium 10.2 mg/dL (8.5-10.1) H 05/20/23 23:20 Total Bilirubin 0.40 mg/dL (0.2-1.0) 05/20/23 23:20 AST 22 Units/L (15-37) 05/20/23 23:20 ALT 24 Units/L (12-78) 05/20/23 23:20 Alkaline Phosphatase 166 Units/L (46-116) H 05/20/23 23:20 Creatine Kinase 9 Units/L (39-308) L 05/20/23 23:20 Troponin I High Sens < 4.0 ng/L (4.0-60.0) L 05/21/23 01:35 C-Reactive Protein 134.10 mg/L (0-3.0) H 05/21/23 00:35 B-Natriuretic Peptide 67.5 pg/mL (0-79) 05/20/23 23:20 Total Protein 8.3 g/dL (6.4-8.2) H 05/20/23 23:20 Albumin 1.9 g/dL (3.4-5.0) L 05/20/23 23:20 Globulin 6.4 g/dL (2.5-4.5) H 05/20/23 23:20 Albumin/Globulin Ratio 0.3 Ratio (1.1-2.1) L 05/20/23 23:20 Specimen Type Clean catch urine 05/21/23 01:25 Urine Color Yellow (YELLOW) 05/21/23 01:25 Urine Appearance Clear (CLEAR) 05/21/23 01:25 Urine pH 5.0 (5.0 - 8.0) 05/21/23 01:25 Ur Specific [place] 1.010 (1.000-1.030) 05/21/23 01:25 Urine Protein 1+ (NEGATIVE) 05/21/23 01:25 Urine Glucose (UA) Negative (NEGATIVE) 05/21/23 01:25 Urine Ketones Negative (NEGATIVE) 05/21/23 01:25 Urine Blood Negative (NEGATIVE) 05/21/23 01:25 Urine Nitrite Negative (NEGATIVE) 05/21/23 01:25 Urine Bilirubin Negative (NEGATIVE) 05/21/23 01:25 Urine Urobilinogen Normal (NORMAL) 05/21/23 01:25 Ur Leukocyte Esterase Negative (NEGATIVE) 05/21/23 01:25 Urine RBC 0-2 /HPF (0-3) 05/21/23 01:25 Urine WBC None seen /HPF (0-5) 05/21/23 01:25 Ur Squamous Epith Cells Rare /HPF (NEGATIVE) 05/21/23 01:25 Urine Bacteria Negative /HPF (NEGATIVE) 05/21/23 01:25 Ur Culture Indicated? No/not indicated 05/21/23 01:25 Urine Opiates Screen Negative (NEG=<300) 05/21/23 01:25 Urine Methadone Screen Negative (NEG=<300) 05/21/23 01:25 Ur Barbiturates Screen Negative (NEG=<200) 05/21/23 01:25 Ur Phencyclidine Scrn Negative (NEG=<25) 05/21/23 01:25 Ur Amphetamines Screen Negative (NEG=<1000) 05/21/23 01:25 U Benzodiazepines Scrn Negative (NEG=<200) 05/21/23 01:25 Urine Cocaine Screen Negative (NEG=<300) 05/21/23 01:25 U Marijuana (THC) Screen Negative (NEG=<50) 05/21/23 01:25 Ethyl Alcohol mg/dL < 3 mg/dL (0-19.9) 05/21/23 00:35 XRAY XRAY Interpreted by: Radiologist X-ray Results: HISTORY PT TO ED VIA EMS C/O RIGHT UPPER CHEST PAIN. PATIENT IS SENSITIVE TO TOUCH ON THE RIGHT SIDE. PT RECENTLY HOSPITALIZED HERE X 7 DAYS FOR PNEUMONIA. SEIZURES SX: ABD SURG STUDY CHEST, 1 VIEW COMPARISON 04/01/2023 FINDINGS The trachea is midline. The cardiac silhouette is unremarkable. There is infiltrate/consolidation involving the right upper and right lung base. Left lung is clear. No pneumothorax. The bony thorax is unremarkable. IMPRESSION Right lung pneumonic infiltrate/consolidation. Electronically signed by: Eh Box (May 21, 2023 00:34:55) EKG Compared to prior EKG Dated: 06/20/23 Rate: 103 [place]: Normal (negative axis) Rhythm: ST Block: [address]: Nonsp (Twave abnormality) Opioid Opioid Risk Tool Family Hx of Substance Abuse: Alcohol Personal Hx of Substance Abuse: Alcohol Age (Lonnie box if 16-45): No History of Preadolescent Sexual Abuse: No Total: 0 Total Score Risk Category: Low Risk Copyright: Efren PARK predicting aberrant behaviors Discharge Plan Diagnosis Discharge Problem: Pneumonia Discharge Plan Patient Disposition: 09 ADMITTED INPATIENT Condition: Stable Prescriptions: No Action citalopram 40 mg tablet 40 mg PO QDAY levetiracetam 500 mg tablet 500 mg PO BID folic acid 1 mg tablet 1 mg PO QDAY amoxicillin 500 mg capsule 500 mg PO 1XD Health Concerns: Post Hospitalization: new medications and changes needed to prevent readmission or further decline. Pt educated and given instructions on all concerns. Plan of Treatment: Continue with present treatment and follow up plan. Pt is to keep follow up appointment as instructed and take medications as ordered. Follow ups/Referrals Follow ups/Referrals: BLAKE LEIJA [Primary Care Provider] - 3 days Instructions Stand Alone Forms: Post Hospital Follow Up Care ADDITIONAL NOTES Additional Notes Additional Notes: EKG #2 05/21/2023 01:31 RATE 94 RHYTHM NSR AXIS LAD Prolonged QT
[2023-05-21] MEDS ORDERED: VANCOMYCIN IV *PREMIX 1.5 G/300 ML BAG 1.5 G/300 ML PIGGYBACK IV SCH (00:24)
[2023-05-21] MEDS ORDERED: VANCOMYCIN IV *PREMIX 1.5 G/300 ML BAG 1.5 G/300 ML PIGGYBACK IV ONE (00:26)
--- NOTE | 2023-05-21 00:36 | RAD ---
HISTORYPT TO ED VIA EMS C/O RIGHT UPPER CHEST PAIN. PATIENT IS SENSITIVE TO TOUCH ON THE RIGHT SIDE. PT RECENTLY HOSPITALIZED HERE X 7 DAYS FOR PNEUMONIA. SEIZURES SX: ABD SURGSTUDYCHEST, 1 [id number]/16/2023FINDINGSThe trachea is midline. The cardiac silhouette is unremarkable. There is infiltrate/consolidation involving the right upper and right lung base. Left lung is clear. No pneumothorax. The bony thorax is unremarkable.IMPRESSIONRight lung pneumonic infiltrate/consolidation.Electronically signed by: Eh Box (May 21, 2023 00:34:55)
[2023-05-21] MEDS ORDERED: ZOSYN VIAL 4.5 GRAMS IV ONE (00:54)
[2023-05-21] MEDS ORDERED: ZITHROMAX INJ 500 MG VIAL 500 MG in NS 250 ML IV 250 ML IV SCH (00:55)
[2023-05-21] MEDS ORDERED: NS 100 ML IV 100 ML ONE (00:55)
[2023-05-21] MEDS: ZOSYN VIAL 4.5 GRAMS 4.5 G in NS 100 ML IV 100 ML IV SCH ×4 (01:18→21:40)
[2023-05-21] MEDS ORDERED: NS 250 ML IV 250 ML IV ONE (01:33)
[2023-05-21] MEDS ORDERED: ZITHROMAX INJ 500 MG VIAL IV ONE (01:33)
[2023-05-21 01:36] LABS: APPEARANCE,URINE CLEAR (CLEAR); BILIRUBIN,URINE NEGATIVE (NEGATIVE); BLOOD/HEMOGLOBIN,URINE NEGATIVE (NEGATIVE); COLOR,URINE YELLOW (YELLOW); GLUCOSE, URINE NEGATIVE (NEGATIVE); KETONES,URINE NEGATIVE (NEGATIVE); LEUKOCYTE ESTERASE ,URINE NEGATIVE (NEGATIVE); NITRITES,URINE NEGATIVE (NEGATIVE); PROTEIN,URINE 1+ (NEGATIVE); UROBILINOGEN,URINE NORMAL (NORMAL)
[2023-05-21 01:41] LABS: BACTERIA,URINE NEGATIVE /HPF (NEGATIVE); RBC,URINE 0-2 /HPF (0-3); SQUAMOUS EPITHELIAL CELL,UR RARE /HPF (NEGATIVE)
--- NOTE | 2023-05-21 01:44 | EKG ---
Test Reason : chest pain Blood Pressure : */* mmHG Vent. Rate : 94 BPM Atrial Rate : 94 BPM P-R Int : 144 ms QRS Dur : 80 ms QT Int : 390 ms P-R-T Axes : 21 -31 23 degrees QTc Int : 487 ms Normal sinus rhythm Left axis deviation Prolonged QT Abnormal ECG When compared with ECG of 20-MAY-2023 23:02, (Unconfirmed) FL interval has decreased T wave inversion no longer evident in Anterior leads Confirmed by Richie Copeland ([id number]) on 05/25/2023 8:04:49 AM Referred By: Confirmed By: Richie Copeland
[2023-05-21] MEDS: NS 1,000 ML IV 1,000 ML IV SCH ×3 (02:02→21:44)
[2023-05-21 03:28] VITALS: BMI 19.1
[2023-05-21 05:18] LABS: BASOPHILS # (AUTO) 0.2 X10^3/uL (0.0-0.1); BASOPHILS % (AUTO) 0.7 % (0.2-1.0); EOSINOPHILS % (AUTO) 0.2 % (0.9-2.9); HEMATOCRIT 24.5 % (42.0-54.0); HEMOGLOBIN 8.2 g/dL (13.5-18.0); LYMPHOCYTES # (AUTO) 1.3 X10^3/uL (1.3-2.9); LYMPHOCYTES % (AUTO) 5.6 % (21.0-51.0); MEAN CORPUSCULAR HEMOGLOBIN 29.7 pg (27.0-34.0); MEAN CORPUSCULAR HGB CONC 33.3 g/dL (33.0-35.0); MEAN CORPUSCULAR VOLUME 89.2 fL (80.0-100.0); MEAN PLATELET VOLUME 6.4 fL (7.4-11.0); MONOCYTES # (AUTO) 0.7 x10^3/uL (0.3-0.8); NEUTROPHILS # (AUTO) 20.9 x10^3/uL (2.2-4.8); NEUTROPHILS % (AUTO) 90.5 % (42.0-75.0); PLATELET COUNT 653 X10^3/uL (150.0-450.0); RED BLOOD COUNT 2.75 X10^6/uL (4.7-6.0); RED CELL DISTRIBUTION WIDTH 15.8 % (11.6-16.5); WHITE BLOOD COUNT 23.1 X10^3/uL (3.6-10.0)
[2023-05-21 05:28] LABS: ALANINE AMINOTRANSFERASE 16 Units/L (12-78); ALBUMIN 1.5 g/dL (3.4-5.0); ALKALINE PHOSPHATASE 124 Units/L (46-116); ASPARTATE AMINO TRANSFERASE 15 Units/L (15-37); BLOOD UREA NITROGEN 4 mg/dL (7-18); CALCIUM 7.8 mg/dL (8.5-10.1); CARBON DIOXIDE 22.8 mmol/L (21-32); CHLORIDE 106 mmol/L (98-107); COR CA(FOR HYPOALB) 9.8 mg/dL (8.5-10.1); CREATINE KINASE 9 Units/L (39-308); CREATININE 0.62 mg/dL (0.70-1.30); GLUCOSE 99 mg/dL (65-99); SODIUM 137 mmol/L (136-145); TOTAL PROTEIN 6.8 g/dL (6.4-8.2); eGFR NON BLACK RACES > 60 (>60)
--- NOTE | 2023-05-21 05:50 | RAD ---
HISTORYRUL/RLL CONSOLIDATION Relevant Clinical InformationSTUDYCHEST, 1 [id number]/04/2023FINDINGSThe trachea is midline. The cardiac silhouette is unremarkable. Infiltrates/consolidation involving the right upper and right lung base unchanged. The left lung is clear. The bony thorax is unremarkable.IMPRESSIONRight lung pneumonic infiltrates/consolidation.Electronically signed by: Eh Box (May 21, 2023 05:48:46)
[2023-05-21 05:58] LABS: BAND NEUTROPHILS % 3 % (0-10); PLATELET MORPHOLOGY COMMENT NORMAL (NORMAL)
--- NOTE | 2023-05-21 07:04 | EKG ---
Test Reason : chest pain Blood Pressure : */* mmHG Vent. Rate : 102 BPM Atrial Rate : 102 BPM P-R Int : 150 ms QRS Dur : 82 ms QT Int : 308 ms P-R-T Axes : 38 -23 23 degrees QTc Int : 401 ms Sinus tachycardia Cannot rule out Anterior infarct , age undetermined Abnormal ECG When compared with ECG of 21-MAY-2023 01:31, (Unconfirmed) Nonspecific T wave abnormality now evident in Anterolateral leads QT has shortened Confirmed by Richie Copeland ([id number]) on 05/25/2023 8:04:39 AM Referred By: Confirmed By: Richie Copeland
[2023-05-21] MEDS: DUONEB 0.5 MG/3 MG (3 mL) NEB SCH ×4 (08:50→21:15)
[2023-05-21] MEDS: FOLIC ACID TAB 1 MG PO SCH (09:33)
[2023-05-21] MEDS: KEPPRA TAB 500 MG PO SCH ×2 (09:33→21:40)
[2023-05-21] MEDS: VANCOMYCIN IV *PREMIX 1 G/200 ML BAG 1 G/200 ML PIGGYBACK IV SCH ×2 (09:33→21:40)
[2023-05-21] MEDS: CELEXA PO SCH (09:33)
[2023-05-21] MEDS ORDERED: PHARMACY CONSULT - VANCOMYCIN XX SCH (10:00)
[2023-05-21] MEDS: TORADOL 15 MG VIAL IVP PRN ×2 (14:52→21:38)
[2023-05-21] MEDS: TYLENOL 325 MG TAB PO PRN (21:53)
[2023-05-22] MEDS ORDERED: ZITHROMAX INJ 500 MG VIAL 500 MG in NS 250 ML IV 250 ML IV SCH (04:00)
[2023-05-22] MEDS: TORADOL 15 MG VIAL IVP PRN ×2 (04:21→20:03)
[2023-05-22] MEDS: ZOSYN VIAL 4.5 GRAMS 4.5 G in NS 100 ML IV 100 ML IV SCH ×3 (05:21→21:37)
[2023-05-22 05:23] LABS: BASOPHILS # (AUTO) 0.2 X10^3/uL (0.0-0.1); BASOPHILS % (AUTO) 0.7 % (0.2-1.0); EOSINOPHILS % (AUTO) 0.2 % (0.9-2.9); HEMATOCRIT 24.5 % (42.0-54.0); LYMPHOCYTES # (AUTO) 1.8 X10^3/uL (1.3-2.9); LYMPHOCYTES % (AUTO) 5.9 % (21.0-51.0); MEAN CORPUSCULAR HEMOGLOBIN 28.7 pg (27.0-34.0); MEAN CORPUSCULAR HGB CONC 32.7 g/dL (33.0-35.0); MEAN CORPUSCULAR VOLUME 87.9 fL (80.0-100.0); MEAN PLATELET VOLUME 6.5 fL (7.4-11.0); MONOCYTES # (AUTO) 1.7 x10^3/uL (0.3-0.8); MONOCYTES % (AUTO) 5.5 % (0.0-13.0); NEUTROPHILS # (AUTO) 26.4 x10^3/uL (2.2-4.8); NEUTROPHILS % (AUTO) 87.7 % (42.0-75.0); PLATELET COUNT 648 X10^3/uL (150.0-450.0); RED BLOOD COUNT 2.79 X10^6/uL (4.7-6.0); RED CELL DISTRIBUTION WIDTH 15.9 % (11.6-16.5)
[2023-05-22 05:25] LABS: ALANINE AMINOTRANSFERASE 9 Units/L (12-78); ALBUMIN 1.4 g/dL (3.4-5.0); ALKALINE PHOSPHATASE 122 Units/L (46-116); ASPARTATE AMINO TRANSFERASE 10 Units/L (15-37); BLOOD UREA NITROGEN 6 mg/dL (7-18); CARBON DIOXIDE 23.9 mmol/L (21-32); CHLORIDE 105 mmol/L (98-107); COR CA(FOR HYPOALB) 10.1 mg/dL (8.5-10.1); CREATININE 0.48 mg/dL (0.70-1.30); GLUCOSE 90 mg/dL (65-99); POTASSIUM 3.6 mmol/L (3.5-5.1); SODIUM 139 mmol/L (136-145); TOTAL PROTEIN 6.4 g/dL (6.4-8.2); eGFR NON BLACK RACES > 60 (>60)
[2023-05-22] MEDS: NS 1,000 ML IV 1,000 ML IV SCH ×4 (05:36→21:40)
[2023-05-22 05:45] LABS: BAND NEUTROPHILS % 4 % (0-10); PLATELET MORPHOLOGY COMMENT NORMAL (NORMAL); WHITE BLOOD COUNT 30.1 X10^3/uL (3.6-10.0)
[2023-05-22] MEDS ORDERED: PHARMACY COMMENT IV NR (08:30)
[2023-05-22] MEDS: DUONEB 0.5 MG/3 MG (3 mL) NEB SCH ×4 (08:35→21:50)
[2023-05-22 09:44] LABS: CREATININE 0.5 mg/dL (0.70-1.30); VANCOMYCIN,TROUGH 5.3 ug/mL (15-20)
[2023-05-22] MEDS: KEPPRA TAB 500 MG PO SCH ×2 (09:54→21:37)
[2023-05-22] MEDS: CELEXA PO SCH (09:54)
[2023-05-22] MEDS: FOLIC ACID TAB 1 MG PO SCH (09:55)
[2023-05-22] MEDS: CLEOCIN 300 MG IV PREMIX 300 MG/50 ML BAG IV SCH ×3 (09:57→21:38)
[2023-05-22] MEDS: VANCOMYCIN IV *PREMIX 1 G/200 ML BAG 1 G/200 ML PIGGYBACK IV SCH ×3 (10:18→21:40)
[2023-05-22] MEDS: TYLENOL 325 MG TAB PO PRN (11:56)
[2023-05-23] MEDS: TORADOL 15 MG VIAL IVP PRN ×3 (01:11→20:15)
[2023-05-23] MEDS ORDERED: PHARMACY COMMENT IV NR ×2 (05:30→21:30)
[2023-05-23] MEDS: ZOSYN VIAL 4.5 GRAMS 4.5 G in NS 100 ML IV 100 ML IV SCH ×2 (05:43→13:39)
[2023-05-23] MEDS: CLEOCIN 300 MG IV PREMIX 300 MG/50 ML BAG IV SCH ×2 (05:43→13:49)
--- NOTE | 2023-05-23 06:01 | RAD ---
HISTORYSOB Relevant Clinical InformationSTUDYCHEST, 1 [id number]/05/2023FINDINGSThe trachea is midline. The cardiac silhouette is unremarkable. Near complete opacification of the right cecilia thorax due to large pleural effusion under and underlying atelectasis and/or consolidation. The left lung is clear. The bony thorax is unremarkable.IMPRESSIONNear complete opacification of the right cecilia thorax increased from prior study..Electronically signed by: Eh Box (May 23, 2023 06:00:46)
[2023-05-23 06:46] LABS: BASOPHILS # (AUTO) 0.1 X10^3/uL (0.0-0.1); BASOPHILS % (AUTO) 0.4 % (0.2-1.0); EOSINOPHILS % (AUTO) 0.2 % (0.9-2.9); HEMATOCRIT 22.6 % (42.0-54.0); HEMOGLOBIN 7.4 g/dL (13.5-18.0); LYMPHOCYTES # (AUTO) 1.3 X10^3/uL (1.3-2.9); LYMPHOCYTES % (AUTO) 4.7 % (21.0-51.0); MEAN CORPUSCULAR HEMOGLOBIN 28.7 pg (27.0-34.0); MEAN CORPUSCULAR HGB CONC 32.7 g/dL (33.0-35.0); MEAN CORPUSCULAR VOLUME 87.7 fL (80.0-100.0); MEAN PLATELET VOLUME 6.5 fL (7.4-11.0); MONOCYTES # (AUTO) 1.3 x10^3/uL (0.3-0.8); MONOCYTES % (AUTO) 4.7 % (0.0-13.0); NEUTROPHILS # (AUTO) 25.5 x10^3/uL (2.2-4.8); PLATELET COUNT 590 X10^3/uL (150.0-450.0); RED BLOOD COUNT 2.57 X10^6/uL (4.7-6.0); RED CELL DISTRIBUTION WIDTH 16.2 % (11.6-16.5); WHITE BLOOD COUNT 28.3 X10^3/uL (3.6-10.0)
[2023-05-23 06:51] LABS: CREATININE 0.45 mg/dL (0.70-1.30); VANCOMYCIN,TROUGH 7.4 ug/mL (15-20)
[2023-05-23 06:54] LABS: ALANINE AMINOTRANSFERASE 9 Units/L (12-78); ALBUMIN 1.3 g/dL (3.4-5.0); ALKALINE PHOSPHATASE 151 Units/L (46-116); ASPARTATE AMINO TRANSFERASE 12 Units/L (15-37); BLOOD UREA NITROGEN 3 mg/dL (7-18); CALCIUM 7.6 mg/dL (8.5-10.1); CARBON DIOXIDE 24.8 mmol/L (21-32); CHLORIDE 102 mmol/L (98-107); COR CA(FOR HYPOALB) 9.8 mg/dL (8.5-10.1); CREATININE 0.45 mg/dL (0.70-1.30); GLUCOSE 77 mg/dL (65-99); SODIUM 135 mmol/L (136-145); TOTAL PROTEIN 6.1 g/dL (6.4-8.2); eGFR NON BLACK RACES > 60 (>60)
[2023-05-23] MEDS: DUONEB 0.5 MG/3 MG (3 mL) NEB SCH ×4 (07:47→16:12)
[2023-05-23] MEDS ORDERED: KLONOPIN TAB 0.5 MG PO ONE (08:00)
[2023-05-23] MEDS ORDERED: CONSULT PHARMACY - POTASSIUM & MAGNESIUM XX SCH (08:00)
[2023-05-23 08:53] LABS: BAND NEUTROPHILS % 14 % (0-10)
[2023-05-23 08:54] LABS: BASOPHILS % (MANUAL) 0 % (0-1); OVALOCYTES SLIGHT; PLATELET MORPHOLOGY COMMENT NORMAL (NORMAL); TARGET CELLS SLIGHT
[2023-05-23] MEDS: VANCOMYCIN IV *PREMIX 1 G/200 ML BAG 1 G/200 ML PIGGYBACK IV SCH ×2 (09:09→13:38)
[2023-05-23] MEDS: KEPPRA TAB 500 MG PO SCH (09:10)
[2023-05-23] MEDS: CELEXA PO SCH (09:10)
[2023-05-23] MEDS: NS 1,000 ML IV 1,000 ML IV SCH ×2 (09:10→12:44)
[2023-05-23] MEDS: FOLIC ACID TAB 1 MG PO SCH (09:10)
--- NOTE | 2023-05-23 09:46 | CT ---
EXAM:CHEST W/O CONHISTORY:pneumonia and probable pleural effusioncoughing up phlegm;COMPARISON:Chest radiograph from same day.TECHNIQUE:Multiple axial images of the chest were obtained from the thoracic inlet to the upper abdomen without the administration of IV contrast. Dose reduction techniques including Automated Exposure Control (AEC) and adjustment of mA and kV were utilized.FINDINGS:Lack of contrast limits evaluation.The visualized thyroid gland appears benign. Non atherosclerotic normal caliber thoracic aorta. There is mild rightward shift of the heart and mediastinum. The heart is normal in size. No significant pericardial effusion. There are few mildly enlarged lymph nodes in the mediastinum such as right paratracheal lymph node measuring 1.3 cm short axis image 19 series 3. Suspect right hilar adenopathy but this is limited without contrast. There is hepatic steatosis. No acute osseous abnormality. The trachea and left mainstem bronchus are patent. There is partial opacification of the right distal mainstem bronchus. There is a moderate multiloculated right pleural effusion. There are cavitary lesions in the right lung involving the right upper and lower lobes. In the right upper lobe a cavitary lesion can be seen on image 17 series 4 with the air component measuring about 3.1 x 1.4 cm axial. Larger cavitary component in the right lower lobe that measures about 14.3 cm craniocaudal by 6.1 cm mediolateral on image 31 series 6 and 4.4 cm AP image 42 series 4. At least some of this cavitation in the right lower lobe is favored to be in the pleural space. There are airspace opacities versus atelectasis throughout much of the right lung.IMPRESSION:Loculated complex moderate right pleural effusion. There are cavitations in right lung, some of which which may represent cavitary pneumonia. Some of this air is favored to be within the pleural space such as in the right lower lobe and may represent empyema in the absence of recent intervention. Lack of contrast limits evaluation. Opacifications in the right lung likely combination of pneumonia and atelectasis.Mild mediastinal/right hilar adenopathy may be reactive. Recommend 3 month follow-up to document stability or resolution in the absence of known malignancy for which PET-CT or biopsy may be warranted.THIS IS AN ELECTRONICALLY VERIFIED FINAL [id number]/23/2023 9:43 AM - Electronically signed by Merrill Mckenna MD
[2023-05-23] MEDS ORDERED: STERILE WATER IRRIGATION IR ONE (09:50)
[2023-05-23] MEDS ORDERED: MAG-OX TAB PO SCH (10:00)
[2023-05-23] MEDS: K-DUR TAB 20 MEQ PO SCH ×3 (13:41→16:25)
[2023-05-23 16:10] VITALS: BP 113/69; PULSE 122; TEMP 98.4; O2SAT 66
[2023-05-23] MEDS ORDERED: MAG-OX TAB ONE (16:26)
[2023-05-23 21:53] VITALS: RESP 20
== END 2023-05-23 20:30 | disposition short-term general hospital (02) | DRG 194 ==
LOC: ER 22:57 → ICU 22:57 → OBSVTOIN 05-21 02:29 → ICU 05-21 03:00 → MED/SURG 05-21 15:20 → ICU 05-23 10:05
PROVIDERS: ADMIT Obstetrics & Gynecology Obstetrics; ATTEND Obstetrics & Gynecology Obstetrics
DX: R07.89 Other chest pain; J90 Pleural effusion, not elsewhere classified; J18.8 Other pneumonia, unspecified organism; R79.1 Abnormal coagulation profile; R06.02 Shortness of breath; B95.3 Streptococcus pneumoniae as the cause of diseases classified elsewhere; B96.29 Other Escherichia coli [E. coli] as the cause of diseases classified elsewhere; F10.10 Alcohol abuse, uncomplicated; R79.82 Elevated C-reactive protein (CRP); Z72.0 Tobacco use; F14.90 Cocaine use, unspecified, uncomplicated

== ENCOUNTER 2023-06-11 17:08 | Inpatient (IN) ==
[2023-06-11] MEDS: ZOSYN VIAL 4.5 GRAMS 4.5 G in NS 100 ML IV 100 ML IV SCH (21:10)
[2023-06-11] MEDS: PERCOCET TAB 5/325 MG PO PRN (21:10)
[2023-06-11] MEDS: KEPPRA TAB 500 MG PO SCH (22:45)
[2023-06-11] MEDS: NEURONTIN CAP 100 MG PO SCH (22:45)
[2023-06-12] MEDS: NEURONTIN CAP 100 MG PO SCH ×3 (05:14→21:51)
[2023-06-12] MEDS: ZOSYN VIAL 4.5 GRAMS 4.5 G in NS 100 ML IV 100 ML IV SCH ×3 (05:15→21:51)
[2023-06-12 07:54] LABS: BASOPHILS # (AUTO) 0.3 X10^3/uL (0.0-0.1); BASOPHILS % (AUTO) 3.1 % (0.2-1.0); EOSINOPHILS # (AUTO) 0.6 x10^3/uL (0.0-0.2); EOSINOPHILS % (AUTO) 6.5 % (0.9-2.9); HEMATOCRIT 29.5 % (42.0-54.0); HEMOGLOBIN 9.6 g/dL (13.5-18.0); LYMPHOCYTES # (AUTO) 0.7 X10^3/uL (1.3-2.9); LYMPHOCYTES % (AUTO) 7.9 % (21.0-51.0); MEAN CORPUSCULAR HEMOGLOBIN 29.7 pg (27.0-34.0); MEAN CORPUSCULAR HGB CONC 32.6 g/dL (33.0-35.0); MEAN PLATELET VOLUME 6.5 fL (7.4-11.0); MONOCYTES # (AUTO) 0.5 x10^3/uL (0.3-0.8); MONOCYTES % (AUTO) 6.3 % (0.0-13.0); NEUTROPHILS # (AUTO) 6.5 x10^3/uL (2.2-4.8); NEUTROPHILS % (AUTO) 76.2 % (42.0-75.0); PLATELET COUNT 625 X10^3/uL (150.0-450.0); RED BLOOD COUNT 3.24 X10^6/uL (4.7-6.0); RED CELL DISTRIBUTION WIDTH 18.1 % (11.6-16.5); WHITE BLOOD COUNT 8.5 X10^3/uL (3.6-10.0)
[2023-06-12 08:03] LABS: ALANINE AMINOTRANSFERASE 15 Units/L (12-78); ALKALINE PHOSPHATASE 92 Units/L (46-116); ASPARTATE AMINO TRANSFERASE 17 Units/L (15-37); BLOOD UREA NITROGEN 1 mg/dL (7-18); CALCIUM 8.5 mg/dL (8.5-10.1); CARBON DIOXIDE 32.1 mmol/L (21-32); CHLORIDE 101 mmol/L (98-107); COR CA(FOR HYPOALB) 10.1 mg/dL (8.5-10.1); CREATININE 0.51 mg/dL (0.70-1.30); GLUCOSE 83 mg/dL (65-99); POTASSIUM 3.2 mmol/L (3.5-5.1); SODIUM 138 mmol/L (136-145); TOTAL PROTEIN 8.2 g/dL (6.4-8.2); eGFR NON BLACK RACES > 60 (>60)
[2023-06-12] MEDS: KEPPRA TAB 500 MG PO SCH ×2 (08:30→20:15)
[2023-06-12] MEDS: PERCOCET TAB 5/325 MG PO PRN ×2 (13:57→20:17)
[2023-06-12] MEDS: FOLIC ACID TAB 1 MG PO SCH (13:57)
[2023-06-12] MEDS: CELEXA PO SCH (13:57)
[2023-06-12] MEDS: VITAMIN B-1 PO SCH (13:57)
--- NOTE | 2023-06-12 14:00 | RAD ---
EXAM:CHEST, 1 VIEWHISTORY:PNEUMONIA;COMPARISON:May 23, 2023.FINDINGS:Heart: The cardiomediastinal silhouette is normal in size.Lungs: Diffuse nonspecific airspace infiltrate is noted, worse on the left, markedly improved on the right. The near-complete opacification of the right hemithorax which is probably a marked right-sided effusion has near completely resolvedBones:The bony thorax appears age appropriate.IMPRESSION:1. Diffuse nonspecific airspace infiltrate is noted, worse on the left, markedly improved on the right. The near-complete opacification of the right hemithorax which is probably a marked right-sided effusion has near completely resolved.THIS IS AN ELECTRONICALLY VERIFIED FINAL [id number]/12/2023 1:57 PM - Electronically signed by Fabrice Eubanks DO
[2023-06-12] MEDS ORDERED: CONSULT PHARMACY - POTASSIUM & MAGNESIUM XX SCH (17:00)
[2023-06-12] MEDS: MAG-OX TAB PO SCH ×2 (17:36→20:15)
[2023-06-12] MEDS ORDERED: K-DUR TAB 20 MEQ PO ONE (18:00)
--- NOTE | 2023-06-12 19:47 | DR.H&P ---
H&P History & Physical for Day of: H&P Date: 06/12/23 Chief Complaint Chief Complaint: Return for recurrent treatment for empyema with loculations on the right. Allergies Allergies Allergy/AdvReac Type Severity Reaction Status Date / Time iodine Allergy Verified 05/20/23 23:00 shrimp Allergy Verified 06/11/23 17:38 History of Present Illness History of Present Illness: Patient is a 43-year-old male with past medical history of seizure disorder, multiple brain abscesses, and recent history of pneumonia that was transferred to an outside hospital with hypoxia and persistent tachycardia. Imaging noted an empyema with a loculations on the right. Cardiothoracic surgery was consulted and chest tube placed by cardiothoracic surgery. Patient was extubated on May 26. CT of the chest was done at that time which showed right lung base consolidation with loculated effusion. Repeat CT was done on 06/03 which showed slightly increased size of cavitary process in the right upper lobe with similar fluid in the lateral right upper lobe. Patient however was deemed not to be a candidate for VATS patella thoracic surgery. Chest tube was removed on 06/04 with recommendations for repeat CT in 1 week patient here is status post intubation and subsequent ex tubation. He is status post chest tube placement and removal. Pt with acute hypoxic respiratory failure and empyema during that hospital course. He is to continue his home medications. He will also require IV antibiotics Zosyn until 06/16 per ID. We will restart home medications. Otherwise continue with current treatment. Continue closely monitor and follow-up labs/images. Past Medical History Past Medical History: Seizures Past Surgical History Surgical History: Abdominal Surgery and Ortho Surgery Family History Family Medical History: Coronary Artery Disease and Hypertension Social History Does patient currently use any type of tobacco product: No Have you used tobacco products in the last 12 months: Yes Type of Tobacco Use: Cigarettes Alcohol Use: Heavy Drug Use: Marijuana Medications Home Medications: Home Medications Medication Instructions Recorded Confirmed Type citalopram 40 mg tablet 40 mg PO DAILY 06/12/23 06/12/23 History enoxaparin 40 mg/0.4 mL 40 mg subcut DAILY 06/12/23 06/12/23 History subcutaneous syringe (Lovenox) folic acid 1 mg tablet 1 mg PO DAILY 06/12/23 06/12/23 History gabapentin 100 mg capsule 100 mg PO TID 06/12/23 06/12/23 History ipratropium 0.5 mg-albuterol 3 mg 3 ml inhalation Q6H PRN Wheezing 06/12/23 06/12/23 History (2.5 mg base)/3 mL nebulization soln levetiracetam 500 mg tablet 500 mg PO BID 06/12/23 06/12/23 History (Keppra) thiamine mononitrate (vit B1) 100 200 mg PO DAILY 06/12/23 06/12/23 History mg tablet Labs 06/12/23 07:31 06/12/23 07:31 Labs: Laboratory WBC 8.5 X10^3/uL (3.6-10.0) 06/12/23 07:31 RBC 3.24 X10^6/uL (4.7-6.0) L 06/12/23 07:31 Hgb 9.6 g/dL (13.5-18.0) L 06/12/23 07:31 Hct 29.5 % (42.0-54.0) L 06/12/23 07:31 MCV 91.0 fL (80.0-100.0) 06/12/23 07:31 MCH 29.7 pg (27.0-34.0) 06/12/23 07:31 MCHC 32.6 g/dL (33.0-35.0) L 06/12/23 07:31 RDW 18.1 % (11.6-16.5) H 06/12/23 07:31 Plt Count 625 X10^3/uL (150.0-450.0) H 06/12/23 07:31 MPV 6.5 fL (7.4-11.0) L 06/12/23 07:31 Neut % (Auto) 76.2 % (42.0-75.0) H 06/12/23 07:31 Lymph % (Auto) 7.9 % (21.0-51.0) L 06/12/23 07:31 [place] % (Auto) 6.3 % (0.0-13.0) 06/12/23 07:31 Eos % (Auto) 6.5 % (0.9-2.9) H 06/12/23 07:31 Baso % (Auto) 3.1 % (0.2-1.0) H 06/12/23 07:31 Neut # (Auto) 6.5 x10^3/uL (2.2-4.8) H 06/12/23 07:31 Lymph # (Auto) 0.7 X10^3/uL (1.3-2.9) L 06/12/23 07:31 [place] # (Auto) 0.5 x10^3/uL (0.3-0.8) 06/12/23 07:31 Eos # (Auto) 0.6 x10^3/uL (0.0-0.2) H 06/12/23 07:31 Baso # (Auto) 0.3 X10^3/uL (0.0-0.1) H 06/12/23 07:31 Absolute Nucleated RBC 0.0 /100WBC 06/12/23 07:31 Sodium 138 mmol/L (136-145) 06/12/23 07:31 Corrected Sodium TNP 06/12/23 07:31 Potassium 3.2 mmol/L (3.5-5.1) L 06/12/23 07:31 Chloride 101 mmol/L (98-107) 06/12/23 07:31 Carbon Dioxide 32.1 mmol/L (21-32) H 06/12/23 07:31 BUN 1 mg/dL (7-18) L 06/12/23 07:31 Creatinine 0.51 mg/dL (0.70-1.30) L 06/12/23 07:31 Est GFR (MDRD) Af Amer > 60 (>60) 06/12/23 07:31 Est GFR (MDRD) Non-Af > 60 (>60) 06/12/23 07:31 Glucose 83 mg/dL (65-99) 06/12/23 07:31 Calcium 8.5 mg/dL (8.5-10.1) 06/12/23 07:31 Corrected Calcium 10.1 mg/dL (8.5-10.1) 06/12/23 07:31 Magnesium 1.5 mg/dL (2.0-2.9) L 06/12/23 07:31 Total Bilirubin 0.20 mg/dL (0.2-1.0) 06/12/23 07:31 AST 17 Units/L (15-37) 06/12/23 07:31 ALT 15 Units/L (12-78) 06/12/23 07:31 Alkaline Phosphatase 92 Units/L (46-116) 06/12/23 07:31 Total Protein 8.2 g/dL (6.4-8.2) 06/12/23 07:31 Albumin 2.0 g/dL (3.4-5.0) L 06/12/23 07:31 Globulin 6.2 g/dL (2.5-4.5) H 06/12/23 07:31 Albumin/Globulin Ratio 0.3 Ratio (1.1-2.1) L 06/12/23 07:31 Review of Systems Constitutional: No Symptoms Reported Eyes: No Symptoms Reported ENT: No Symptoms Reported Respiratory: Shortness of Breath Cardiovascular: No Symptoms Reported Gastrointestinal: No Symptoms Reported Genitourinary: No Symptoms Reported Musculoskeletal: No Symptoms Reported Skin: No Symptoms Reported Neurological: No Symptoms Reported Physical Exam Vital Signs: Vital Signs Temperature 98.7 F Temperature 98.2 F Pulse Rate [Right Radial] 93 Pulse Rate [Right Radial] 94 Respiratory Rate 20 Respiratory Rate 22 Respiratory Rate 22 Respiratory Rate 18 Blood Pressure [Left Arm] 103/70 Blood Pressure [Left Arm] 101/63 O2 Sat by Pulse Oximetry 98 O2 Sat by Pulse Oximetry 98 Oriented: Normal Eyes: Normal Ear: Normal Nose: Normal Throat: Normal Respiratory: Clear Throughout Cardiovascular: Normal : Normal Auscultation: Bowel Sounds: Normal Palpation: Normal Tenderness: Normal Skin: Normal Musculoskeletal: Normal Psychiatric: Normal Mood Description: Calm and Appropriate Affect: Normal Speech Pattern: Clear and Appropriate Assessment/Plan (1) Pneumonia: Narrative Support Text: Continue antibiotics IV Zosyn till 06/16. Continue to closely monitor and follow-up labs/images. Status: Acute Review H&P Reviewed: Yes Patient was examined?: Yes
[2023-06-13] MEDS: PERCOCET TAB 5/325 MG PO PRN ×4 (04:49→23:53)
[2023-06-13] MEDS: NEURONTIN CAP 100 MG PO SCH ×3 (05:25→21:08)
[2023-06-13] MEDS: ZOSYN VIAL 4.5 GRAMS 4.5 G in NS 100 ML IV 100 ML IV SCH ×3 (05:25→21:08)
[2023-06-13 06:53] LABS: BASOPHILS # (AUTO) 0.2 X10^3/uL (0.0-0.1); BASOPHILS % (AUTO) 2.5 % (0.2-1.0); EOSINOPHILS # (AUTO) 0.5 x10^3/uL (0.0-0.2); EOSINOPHILS % (AUTO) 6.2 % (0.9-2.9); HEMATOCRIT 26.3 % (42.0-54.0); HEMOGLOBIN 8.8 g/dL (13.5-18.0); LYMPHOCYTES # (AUTO) 1.6 X10^3/uL (1.3-2.9); MEAN CORPUSCULAR HEMOGLOBIN 30.3 pg (27.0-34.0); MEAN CORPUSCULAR HGB CONC 33.5 g/dL (33.0-35.0); MEAN CORPUSCULAR VOLUME 90.3 fL (80.0-100.0); MEAN PLATELET VOLUME 6.5 fL (7.4-11.0); MONOCYTES # (AUTO) 0.9 x10^3/uL (0.3-0.8); MONOCYTES % (AUTO) 10.5 % (0.0-13.0); NEUTROPHILS # (AUTO) 4.9 x10^3/uL (2.2-4.8); NEUTROPHILS % (AUTO) 60.8 % (42.0-75.0); PLATELET COUNT 569 X10^3/uL (150.0-450.0); RED BLOOD COUNT 2.92 X10^6/uL (4.7-6.0); RED CELL DISTRIBUTION WIDTH 17.7 % (11.6-16.5); WHITE BLOOD COUNT 8.1 X10^3/uL (3.6-10.0)
[2023-06-13 07:08] LABS: ALANINE AMINOTRANSFERASE 8 Units/L (12-78); ALBUMIN 1.8 g/dL (3.4-5.0); ALKALINE PHOSPHATASE 80 Units/L (46-116); ASPARTATE AMINO TRANSFERASE 12 Units/L (15-37); BLOOD UREA NITROGEN 3 mg/dL (7-18); CALCIUM 8.4 mg/dL (8.5-10.1); CARBON DIOXIDE 29.9 mmol/L (21-32); CHLORIDE 103 mmol/L (98-107); COR CA(FOR HYPOALB) 10.2 mg/dL (8.5-10.1); CREATININE 0.57 mg/dL (0.70-1.30); GLUCOSE 76 mg/dL (65-99); POTASSIUM 3.5 mmol/L (3.5-5.1); SODIUM 138 mmol/L (136-145); TOTAL PROTEIN 7.4 g/dL (6.4-8.2); eGFR NON BLACK RACES > 60 (>60)
[2023-06-13] MEDS ORDERED: CONSULT PHARMACY - POTASSIUM & MAGNESIUM XX SCH (08:00)
[2023-06-13] MEDS: KEPPRA TAB 500 MG PO SCH ×2 (08:31→20:51)
[2023-06-13] MEDS: FOLIC ACID TAB 1 MG PO SCH (08:31)
[2023-06-13] MEDS: VITAMIN B-1 PO SCH (08:31)
[2023-06-13] MEDS: CELEXA PO SCH (08:31)
[2023-06-13] MEDS ORDERED: K-DUR TAB 20 MEQ PO SCH (09:00)
[2023-06-13] MEDS ORDERED: MAG-OX TAB PO SCH (09:00)
[2023-06-14] MEDS: ZOSYN VIAL 4.5 GRAMS 4.5 G in NS 100 ML IV 100 ML IV SCH ×3 (05:02→21:19)
[2023-06-14] MEDS: NEURONTIN CAP 100 MG PO SCH ×3 (05:02→21:19)
[2023-06-14] MEDS: PERCOCET TAB 5/325 MG PO PRN ×5 (05:02→22:19)
[2023-06-14 07:00] LABS: BASOPHILS # (AUTO) 0.2 X10^3/uL (0.0-0.1); EOSINOPHILS # (AUTO) 0.7 x10^3/uL (0.0-0.2); EOSINOPHILS % (AUTO) 8.2 % (0.9-2.9); HEMOGLOBIN 8.6 g/dL (13.5-18.0); LYMPHOCYTES # (AUTO) 1.9 X10^3/uL (1.3-2.9); LYMPHOCYTES % (AUTO) 21.1 % (21.0-51.0); MEAN CORPUSCULAR HGB CONC 33.1 g/dL (33.0-35.0); MEAN CORPUSCULAR VOLUME 90.6 fL (80.0-100.0); MEAN PLATELET VOLUME 6.4 fL (7.4-11.0); MONOCYTES # (AUTO) 0.9 x10^3/uL (0.3-0.8); MONOCYTES % (AUTO) 10.5 % (0.0-13.0); NEUTROPHILS # (AUTO) 5.2 x10^3/uL (2.2-4.8); NEUTROPHILS % (AUTO) 58.2 % (42.0-75.0); PLATELET COUNT 528 X10^3/uL (150.0-450.0); RED BLOOD COUNT 2.87 X10^6/uL (4.7-6.0); RED CELL DISTRIBUTION WIDTH 18.1 % (11.6-16.5)
[2023-06-14 07:22] LABS: ALANINE AMINOTRANSFERASE 7 Units/L (12-78); ALBUMIN 1.9 g/dL (3.4-5.0); ALKALINE PHOSPHATASE 90 Units/L (46-116); ASPARTATE AMINO TRANSFERASE 11 Units/L (15-37); BLOOD UREA NITROGEN 2 mg/dL (7-18); CALCIUM 8.4 mg/dL (8.5-10.1); CARBON DIOXIDE 29.4 mmol/L (21-32); CHLORIDE 101 mmol/L (98-107); COR CA(FOR HYPOALB) 10.1 mg/dL (8.5-10.1); CREATININE 0.64 mg/dL (0.70-1.30); GLUCOSE 101 mg/dL (65-99); MAGNESIUM 1.5 mg/dL (2.0-2.9); POTASSIUM 3.6 mmol/L (3.5-5.1); SODIUM 136 mmol/L (136-145); TOTAL PROTEIN 7.4 g/dL (6.4-8.2); eGFR NON BLACK RACES > 60 (>60)
[2023-06-14] MEDS ORDERED: CONSULT PHARMACY - POTASSIUM & MAGNESIUM XX SCH (08:00)
--- NOTE | 2023-06-14 08:44 | PCM.PROG ---
Progress Note Progress Note for Day of Date of Exam: 06/13/23 Subjective Subjective: Patient is a 43-year-old male with past medical history of seizure disorder, multiple brain abscesses, and recent history of pneumonia that was transferred to an outside hospital with empyema and respiratory failure that required chest tube placement. He is status post chest tube placement and removal. He has returned to [facility] to complete IV antibiotics. Home medications have been resumed. He is currently receiving IV antibiotics Zosyn until 06/16 per ID. Otherwise, continue with current treatment. Continue closely monitor and follow-up labs/images. Past Medical Family Social History Allergies: Allergies iodine Allergy (Verified 05/20/23 23:00) shrimp Allergy (Verified 06/11/23 17:38) Review of Systems ROS changes noted: see HPI Vital Signs and I&O's Vital Signs: Vital Signs Temperature 98.4 F Pulse Rate [Right Radial] 80 Respiratory Rate 20 Respiratory Rate 19 Respiratory Rate 18 Respiratory Rate 18 Blood Pressure [Left Arm] 100/56 O2 Sat by Pulse Oximetry 97 Intake and Output: Intake & Output 06/11/23 06/12/23 06/13/23 06/14/23 23:59 23:59 23:59 23:59 Intake Total 560 / 560 1679 / 1679 1318 / 1318 1060 / 1060 Output Total 1000 / 1000 1825 / 1825 1900 / 1900 Balance 560 / 560 679 / 679 -507 / -507 -840 / -840 Physical Exam Oriented: Normal Eyes: Normal Ear: Normal Nose: Normal Throat: Normal Respiratory: Normal Cardiovascular: Normal : Normal Auscultation: Bowel Sounds: Normal Tenderness: Normal Skin: Normal Musculoskeletal: Normal Psychiatric: Normal Mood Description: Calm and Appropriate Affect: Normal Speech Pattern: Clear and Appropriate Laboratory and Diagnostics 06/14/23 06:02 06/14/23 06:02 Labs: Laboratory WBC 9.0 X10^3/uL (3.6-10.0) 06/14/23 06:02 RBC 2.87 X10^6/uL (4.7-6.0) L 06/14/23 06:02 Hgb 8.6 g/dL (13.5-18.0) L 06/14/23 06:02 Hct 26.0 % (42.0-54.0) L 06/14/23 06:02 MCV 90.6 fL (80.0-100.0) 06/14/23 06:02 MCH 30.0 pg (27.0-34.0) 06/14/23 06:02 MCHC 33.1 g/dL (33.0-35.0) 06/14/23 06:02 RDW 18.1 % (11.6-16.5) H 06/14/23 06:02 Plt Count 528 X10^3/uL (150.0-450.0) H 06/14/23 06:02 MPV 6.4 fL (7.4-11.0) L 06/14/23 06:02 Neut % (Auto) 58.2 % (42.0-75.0) 06/14/23 06:02 Lymph % (Auto) 21.1 % (21.0-51.0) 06/14/23 06:02 [place] % (Auto) 10.5 % (0.0-13.0) 06/14/23 06:02 Eos % (Auto) 8.2 % (0.9-2.9) H 06/14/23 06:02 Baso % (Auto) 2.0 % (0.2-1.0) H 06/14/23 06:02 Neut # (Auto) 5.2 x10^3/uL (2.2-4.8) H 06/14/23 06:02 Lymph # (Auto) 1.9 X10^3/uL (1.3-2.9) 06/14/23 06:02 [place] # (Auto) 0.9 x10^3/uL (0.3-0.8) H 06/14/23 06:02 Eos # (Auto) 0.7 x10^3/uL (0.0-0.2) H 06/14/23 06:02 Baso # (Auto) 0.2 X10^3/uL (0.0-0.1) H 06/14/23 06:02 Absolute Nucleated RBC 0.1 /100WBC 06/14/23 06:02 Sodium 136 mmol/L (136-145) 06/14/23 06:02 Corrected Sodium TNP 06/14/23 06:02 Potassium 3.6 mmol/L (3.5-5.1) 06/14/23 06:02 Chloride 101 mmol/L (98-107) 06/14/23 06:02 Carbon Dioxide 29.4 mmol/L (21-32) 06/14/23 06:02 BUN 2 mg/dL (7-18) L 06/14/23 06:02 Creatinine 0.64 mg/dL (0.70-1.30) L 06/14/23 06:02 Est GFR (MDRD) Af Amer > 60 (>60) 06/14/23 06:02 Est GFR (MDRD) Non-Af > 60 (>60) 06/14/23 06:02 Glucose 101 mg/dL (65-99) H 06/14/23 06:02 Calcium 8.4 mg/dL (8.5-10.1) L 06/14/23 06:02 Corrected Calcium 10.1 mg/dL (8.5-10.1) 06/14/23 06:02 Magnesium 1.5 mg/dL (2.0-2.9) L 06/14/23 06:02 Total Bilirubin 0.20 mg/dL (0.2-1.0) 06/14/23 06:02 AST 11 Units/L (15-37) L 06/14/23 06:02 ALT 7 Units/L (12-78) L 06/14/23 06:02 Alkaline Phosphatase 90 Units/L (46-116) 06/14/23 06:02 Total Protein 7.4 g/dL (6.4-8.2) 06/14/23 06:02 Albumin 1.9 g/dL (3.4-5.0) L 06/14/23 06:02 Globulin 5.5 g/dL (2.5-4.5) H 06/14/23 06:02 Albumin/Globulin Ratio 0.3 Ratio (1.1-2.1) L 06/14/23 06:02 Plan (1) Pneumonia: Status: Acute
[2023-06-14] MEDS ORDERED: K-DUR TAB 20 MEQ PO ONE (09:00)
[2023-06-14] MEDS: KEPPRA TAB 500 MG PO SCH ×2 (10:17→20:36)
[2023-06-14] MEDS: MAG-OX TAB PO SCH ×2 (10:17→12:27)
[2023-06-14] MEDS: FOLIC ACID TAB 1 MG PO SCH (10:17)
[2023-06-14] MEDS: CELEXA PO SCH (10:17)
[2023-06-14] MEDS: VITAMIN B-1 PO SCH (10:17)
--- NOTE | 2023-06-14 12:21 | PCM.PROG ---
Progress Note Progress Note for Day of Date of Exam: 06/14/23 Subjective Subjective: Patient is a 43-year-old male with past medical history of seizure disorder, multiple brain abscesses, and recent history of pneumonia that was transferred to an outside hospital with empyema and respiratory failure that required chest tube placement. He is status post chest tube placement and removal. He has returned to [facility] to complete IV antibiotics. This morning he is doing well. No acute concerns overnight. Home medications have been resumed. He is currently receiving IV antibiotics Zosyn until 06/16 per ID. Otherwise, continue with current treatment. Continue closely monitor and follow-up labs/images. Past Medical Family Social History Allergies: Allergies iodine Allergy (Verified 05/20/23 23:00) shrimp Allergy (Verified 06/11/23 17:38) Review of Systems ROS changes noted: see HPI Vital Signs and I&O's Vital Signs: Vital Signs Temperature 97.5 F Pulse Rate [Right Radial] 82 Respiratory Rate 20 Respiratory Rate 20 Respiratory Rate 20 Respiratory Rate 19 Blood Pressure [Left Arm] 107/70 O2 Sat by Pulse Oximetry 98 Intake and Output: Intake & Output 06/11/23 06/12/23 06/13/23 06/14/23 23:59 23:59 23:59 23:59 Intake Total 560 / 560 1679 / 1679 1318 / 1318 1060 / 1060 Output Total 1000 / 1000 1825 / 1825 1900 / 1900 Balance 560 / 560 679 / 679 -507 / -507 -840 / -840 Physical Exam Oriented: Normal Eyes: Normal Ear: Normal Nose: Normal Throat: Normal Respiratory: Normal Cardiovascular: Normal : Normal Auscultation: Bowel Sounds: Normal Tenderness: Normal Skin: Normal Musculoskeletal: Normal Psychiatric: Normal Mood Description: Calm and Appropriate Affect: Normal Speech Pattern: Clear and Appropriate Laboratory and Diagnostics 06/14/23 06:02 06/14/23 06:02 Labs: Laboratory WBC 9.0 X10^3/uL (3.6-10.0) 06/14/23 06:02 RBC 2.87 X10^6/uL (4.7-6.0) L 06/14/23 06:02 Hgb 8.6 g/dL (13.5-18.0) L 06/14/23 06:02 Hct 26.0 % (42.0-54.0) L 06/14/23 06:02 MCV 90.6 fL (80.0-100.0) 06/14/23 06:02 MCH 30.0 pg (27.0-34.0) 06/14/23 06:02 MCHC 33.1 g/dL (33.0-35.0) 06/14/23 06:02 RDW 18.1 % (11.6-16.5) H 06/14/23 06:02 Plt Count 528 X10^3/uL (150.0-450.0) H 06/14/23 06:02 MPV 6.4 fL (7.4-11.0) L 06/14/23 06:02 Neut % (Auto) 58.2 % (42.0-75.0) 06/14/23 06:02 Lymph % (Auto) 21.1 % (21.0-51.0) 06/14/23 06:02 [place] % (Auto) 10.5 % (0.0-13.0) 06/14/23 06:02 Eos % (Auto) 8.2 % (0.9-2.9) H 06/14/23 06:02 Baso % (Auto) 2.0 % (0.2-1.0) H 06/14/23 06:02 Neut # (Auto) 5.2 x10^3/uL (2.2-4.8) H 06/14/23 06:02 Lymph # (Auto) 1.9 X10^3/uL (1.3-2.9) 06/14/23 06:02 [place] # (Auto) 0.9 x10^3/uL (0.3-0.8) H 06/14/23 06:02 Eos # (Auto) 0.7 x10^3/uL (0.0-0.2) H 06/14/23 06:02 Baso # (Auto) 0.2 X10^3/uL (0.0-0.1) H 06/14/23 06:02 Absolute Nucleated RBC 0.1 /100WBC 06/14/23 06:02 Sodium 136 mmol/L (136-145) 06/14/23 06:02 Corrected Sodium TNP 06/14/23 06:02 Potassium 3.6 mmol/L (3.5-5.1) 06/14/23 06:02 Chloride 101 mmol/L (98-107) 06/14/23 06:02 Carbon Dioxide 29.4 mmol/L (21-32) 06/14/23 06:02 BUN 2 mg/dL (7-18) L 06/14/23 06:02 Creatinine 0.64 mg/dL (0.70-1.30) L 06/14/23 06:02 Est GFR (MDRD) Af Amer > 60 (>60) 06/14/23 06:02 Est GFR (MDRD) Non-Af > 60 (>60) 06/14/23 06:02 Glucose 101 mg/dL (65-99) H 06/14/23 06:02 Calcium 8.4 mg/dL (8.5-10.1) L 06/14/23 06:02 Corrected Calcium 10.1 mg/dL (8.5-10.1) 06/14/23 06:02 Magnesium 1.5 mg/dL (2.0-2.9) L 06/14/23 06:02 Total Bilirubin 0.20 mg/dL (0.2-1.0) 06/14/23 06:02 AST 11 Units/L (15-37) L 06/14/23 06:02 ALT 7 Units/L (12-78) L 06/14/23 06:02 Alkaline Phosphatase 90 Units/L (46-116) 06/14/23 06:02 Total Protein 7.4 g/dL (6.4-8.2) 06/14/23 06:02 Albumin 1.9 g/dL (3.4-5.0) L 06/14/23 06:02 Globulin 5.5 g/dL (2.5-4.5) H 06/14/23 06:02 Albumin/Globulin Ratio 0.3 Ratio (1.1-2.1) L 06/14/23 06:02 Plan (1) Pneumonia: Status: Acute
[2023-06-15] MEDS: PERCOCET TAB 5/325 MG PO PRN ×4 (05:15→22:24)
[2023-06-15] MEDS: NEURONTIN CAP 100 MG PO SCH ×3 (05:15→22:23)
[2023-06-15] MEDS: ZOSYN VIAL 4.5 GRAMS 4.5 G in NS 100 ML IV 100 ML IV SCH ×3 (05:15→22:12)
[2023-06-15 06:17] LABS: BASOPHILS # (AUTO) 0.1 X10^3/uL (0.0-0.1); BASOPHILS % (AUTO) 1.4 % (0.2-1.0); EOSINOPHILS # (AUTO) 0.7 x10^3/uL (0.0-0.2); HEMATOCRIT 27.3 % (42.0-54.0); MEAN CORPUSCULAR HEMOGLOBIN 29.6 pg (27.0-34.0); MEAN CORPUSCULAR VOLUME 89.7 fL (80.0-100.0); MEAN PLATELET VOLUME 6.4 fL (7.4-11.0); MONOCYTES # (AUTO) 1.2 x10^3/uL (0.3-0.8); MONOCYTES % (AUTO) 11.5 % (0.0-13.0); NEUTROPHILS # (AUTO) 6.3 x10^3/uL (2.2-4.8); NEUTROPHILS % (AUTO) 61.1 % (42.0-75.0); PLATELET COUNT 566 X10^3/uL (150.0-450.0); RED BLOOD COUNT 3.05 X10^6/uL (4.7-6.0); RED CELL DISTRIBUTION WIDTH 18.1 % (11.6-16.5); WHITE BLOOD COUNT 10.4 X10^3/uL (3.6-10.0)
[2023-06-15 06:36] LABS: ALANINE AMINOTRANSFERASE 9 Units/L (12-78); ALKALINE PHOSPHATASE 101 Units/L (46-116); ASPARTATE AMINO TRANSFERASE 12 Units/L (15-37); BLOOD UREA NITROGEN 2 mg/dL (7-18); CALCIUM 8.4 mg/dL (8.5-10.1); CARBON DIOXIDE 31.9 mmol/L (21-32); CHLORIDE 101 mmol/L (98-107); CREATININE 0.53 mg/dL (0.70-1.30); GLUCOSE 80 mg/dL (65-99); MAGNESIUM 1.5 mg/dL (2.0-2.9); POTASSIUM 3.5 mmol/L (3.5-5.1); SODIUM 137 mmol/L (136-145); TOTAL PROTEIN 7.5 g/dL (6.4-8.2); eGFR NON BLACK RACES > 60 (>60)
[2023-06-15] MEDS ORDERED: CONSULT PHARMACY - POTASSIUM & MAGNESIUM XX SCH ×2 (07:00→20:00)
[2023-06-15] MEDS: CELEXA PO SCH (08:36)
[2023-06-15] MEDS: VITAMIN B-1 PO SCH (08:36)
[2023-06-15] MEDS: FOLIC ACID TAB 1 MG PO SCH (08:37)
[2023-06-15] MEDS: MAG-OX TAB PO SCH ×3 (08:37→20:21)
[2023-06-15] MEDS: KEPPRA TAB 500 MG PO SCH ×2 (08:37→20:21)
[2023-06-15] MEDS ORDERED: K-DUR TAB 20 MEQ PO SCH (09:00)
--- NOTE | 2023-06-15 15:57 | PCM.PROG ---
Progress Note Progress Note for Day of Date of Exam: 06/15/23 Subjective Subjective: Patient is a 43-year-old male with past medical history of seizure disorder, multiple brain abscesses, and recent history of pneumonia that was transferred to an outside hospital with empyema and respiratory failure that required chest tube placement. He is status post chest tube placement and removal. He has returned to [facility] to complete IV antibiotics. Pt sitting on side of bed this morning eating breakfast. He has been moving around the room more. No other concerns. Labs: Wbc 10.4, Hgb 9, Plt 566, Na 137, K 3.5, Creatinine 0.53, Glucose 80. Home medications have been resumed. He is currently receiving IV antibiotics Zosyn until 06/16 per ID. Otherwise, continue with current treatment. Continue closely monitor and follow-up labs/images. Past Medical Family Social History Allergies: Allergies iodine Allergy (Verified 05/20/23 23:00) shrimp Allergy (Verified 06/11/23 17:38) Review of Systems ROS changes noted: see HPI Vital Signs and I&O's Vital Signs: Vital Signs Temperature 98.1 F Temperature 98.5 F Pulse Rate [Right Radial] 96 Pulse Rate [Right Radial] 86 Respiratory Rate 18 Respiratory Rate 20 Respiratory Rate 20 Respiratory Rate 18 Blood Pressure [Left Arm] 103/58 Blood Pressure [Left Arm] 111/57 O2 Sat by Pulse Oximetry 98 O2 Sat by Pulse Oximetry 97 Intake and Output: Intake & Output 06/12/23 06/13/23 06/14/23 06/15/23 23:59 23:59 23:59 23:59 Intake Total 1679 / 1679 1318 / 1318 2743 / 2743 771 / 771 Output Total 1000 / 1000 1825 / 1825 3240 / 3240 1360 / 1360 Balance 679 / 679 -507 / -507 -497 / -497 -589 / -589 Physical Exam Oriented: Normal Eyes: Normal Ear: Normal Nose: Normal Throat: Normal Respiratory: Normal Cardiovascular: Normal : Normal Auscultation: Bowel Sounds: Normal Tenderness: Normal Skin: Normal Musculoskeletal: Normal Psychiatric: Normal Mood Description: Calm and Appropriate Affect: Normal Speech Pattern: Clear and Appropriate Laboratory and Diagnostics 06/15/23 05:35 06/15/23 05:35 Labs: Laboratory WBC 10.4 X10^3/uL (3.6-10.0) H 06/15/23 05:35 RBC 3.05 X10^6/uL (4.7-6.0) L 06/15/23 05:35 Hgb 9.0 g/dL (13.5-18.0) L 06/15/23 05:35 Hct 27.3 % (42.0-54.0) L 06/15/23 05:35 MCV 89.7 fL (80.0-100.0) 06/15/23 05:35 MCH 29.6 pg (27.0-34.0) 06/15/23 05:35 MCHC 33.0 g/dL (33.0-35.0) 06/15/23 05:35 RDW 18.1 % (11.6-16.5) H 06/15/23 05:35 Plt Count 566 X10^3/uL (150.0-450.0) H 06/15/23 05:35 MPV 6.4 fL (7.4-11.0) L 06/15/23 05:35 Neut % (Auto) 61.1 % (42.0-75.0) 06/15/23 05:35 Lymph % (Auto) 19.0 % (21.0-51.0) L 06/15/23 05:35 [place] % (Auto) 11.5 % (0.0-13.0) 06/15/23 05:35 Eos % (Auto) 7.0 % (0.9-2.9) H 06/15/23 05:35 Baso % (Auto) 1.4 % (0.2-1.0) H 06/15/23 05:35 Neut # (Auto) 6.3 x10^3/uL (2.2-4.8) H 06/15/23 05:35 Lymph # (Auto) 2.0 X10^3/uL (1.3-2.9) 06/15/23 05:35 [place] # (Auto) 1.2 x10^3/uL (0.3-0.8) H 06/15/23 05:35 Eos # (Auto) 0.7 x10^3/uL (0.0-0.2) H 06/15/23 05:35 Baso # (Auto) 0.1 X10^3/uL (0.0-0.1) 06/15/23 05:35 Absolute Nucleated RBC 0.0 /100WBC 06/15/23 05:35 Sodium 137 mmol/L (136-145) 06/15/23 05:35 Corrected Sodium TNP 06/15/23 05:35 Potassium 3.5 mmol/L (3.5-5.1) 06/15/23 05:35 Chloride 101 mmol/L (98-107) 06/15/23 05:35 Carbon Dioxide 31.9 mmol/L (21-32) 06/15/23 05:35 BUN 2 mg/dL (7-18) L 06/15/23 05:35 Creatinine 0.53 mg/dL (0.70-1.30) L 06/15/23 05:35 Est GFR (MDRD) Af Amer > 60 (>60) 06/15/23 05:35 Est GFR (MDRD) Non-Af > 60 (>60) 06/15/23 05:35 Glucose 80 mg/dL (65-99) 06/15/23 05:35 Calcium 8.4 mg/dL (8.5-10.1) L 06/15/23 05:35 Corrected Calcium 10.0 mg/dL (8.5-10.1) 06/15/23 05:35 Magnesium 1.5 mg/dL (2.0-2.9) L 06/15/23 05:35 Total Bilirubin 0.10 mg/dL (0.2-1.0) L 06/15/23 05:35 AST 12 Units/L (15-37) L 06/15/23 05:35 ALT 9 Units/L (12-78) L 06/15/23 05:35 Alkaline Phosphatase 101 Units/L (46-116) 06/15/23 05:35 Total Protein 7.5 g/dL (6.4-8.2) 06/15/23 05:35 Albumin 2.0 g/dL (3.4-5.0) L 06/15/23 05:35 Globulin 5.5 g/dL (2.5-4.5) H 06/15/23 05:35 Albumin/Globulin Ratio 0.4 Ratio (1.1-2.1) L 06/15/23 05:35 Plan (1) Pneumonia: Status: Acute
--- NOTE | 2023-06-15 16:32 | RAD ---
EXAM:CHEST x-ray, 1 VIEWHISTORY:PNEUMONIA, PT HAD CHEST TUBE REMOVED -COMPARISON:X-ray 06/12/2023FINDINGS:Persistent infiltrative densities are seen in the lungs with cavity in the right upper lobe. There may be a small air-fluid level in the cavity. There is mild volume loss in the right lung. Heart is likely normal in size. There may be tiny pleural effusions. No pneumothorax is seen.IMPRESSION:Persistent bilateral pneumonia.THIS IS AN ELECTRONICALLY VERIFIED FINAL [id number]/15/2023 4:29 PM - Electronically signed by Ish Garza MD
[2023-06-15] MEDS: K-DUR TAB 20 MEQ PO SCH (20:21)
[2023-06-16] MEDS: NEURONTIN CAP 100 MG PO SCH (05:12)
[2023-06-16] MEDS: ZOSYN VIAL 4.5 GRAMS 4.5 G in NS 100 ML IV 100 ML IV SCH (05:20)
[2023-06-16 06:29] LABS: BASOPHILS % (AUTO) 0.3 % (0.2-1.0); EOSINOPHILS # (AUTO) 0.5 x10^3/uL (0.0-0.2); EOSINOPHILS % (AUTO) 6.8 % (0.9-2.9); HEMATOCRIT 28.6 % (42.0-54.0); HEMOGLOBIN 9.3 g/dL (13.5-18.0); LYMPHOCYTES # (AUTO) 1.9 X10^3/uL (1.3-2.9); LYMPHOCYTES % (AUTO) 23.6 % (21.0-51.0); MEAN CORPUSCULAR HEMOGLOBIN 29.6 pg (27.0-34.0); MEAN CORPUSCULAR HGB CONC 32.7 g/dL (33.0-35.0); MEAN CORPUSCULAR VOLUME 90.6 fL (80.0-100.0); MEAN PLATELET VOLUME 6.5 fL (7.4-11.0); MONOCYTES # (AUTO) 0.9 x10^3/uL (0.3-0.8); MONOCYTES % (AUTO) 11.8 % (0.0-13.0); NEUTROPHILS # (AUTO) 4.5 x10^3/uL (2.2-4.8); NEUTROPHILS % (AUTO) 57.5 % (42.0-75.0); PLATELET COUNT 557 X10^3/uL (150.0-450.0); RED BLOOD COUNT 3.15 X10^6/uL (4.7-6.0); WHITE BLOOD COUNT 7.9 X10^3/uL (3.6-10.0)
[2023-06-16 06:33] LABS: ALANINE AMINOTRANSFERASE 8 Units/L (12-78); ALBUMIN 2.1 g/dL (3.4-5.0); ALKALINE PHOSPHATASE 74 Units/L (46-116); ASPARTATE AMINO TRANSFERASE 11 Units/L (15-37); BLOOD UREA NITROGEN 2 mg/dL (7-18); CALCIUM 8.9 mg/dL (8.5-10.1); CARBON DIOXIDE 32.2 mmol/L (21-32); CHLORIDE 101 mmol/L (98-107); COR CA(FOR HYPOALB) 10.4 mg/dL (8.5-10.1); CREATININE 0.51 mg/dL (0.70-1.30); GLUCOSE 78 mg/dL (65-99); MAGNESIUM 1.7 mg/dL (2.0-2.9); POTASSIUM 3.6 mmol/L (3.5-5.1); SODIUM 137 mmol/L (136-145); TOTAL PROTEIN 7.7 g/dL (6.4-8.2); eGFR NON BLACK RACES > 60 (>60)
[2023-06-16] MEDS ORDERED: CONSULT PHARMACY - POTASSIUM & MAGNESIUM XX SCH (07:00)
[2023-06-16] MEDS: K-DUR TAB 20 MEQ PO SCH (09:26)
[2023-06-16] MEDS: MAG-OX TAB PO SCH (09:26)
[2023-06-16] MEDS: CELEXA PO SCH (09:26)
[2023-06-16] MEDS: FOLIC ACID TAB 1 MG PO SCH (09:26)
[2023-06-16] MEDS: KEPPRA TAB 500 MG PO SCH (09:27)
[2023-06-16] MEDS: VITAMIN B-1 PO SCH (09:27)
[2023-06-16] MEDS: PERCOCET TAB 5/325 MG PO PRN (09:29)
[2023-06-16] MEDS: MAGNESIUM SULFATE 1 GRAM/100 mL PREMIX 1 G/100 ML BAG IV SCH ×2 (09:32→11:25)
[2023-06-16] MEDS ORDERED: NS 100 ML IV 100 ML ONE (10:14)
[2023-06-16] MEDS ORDERED: K-DUR TAB 20 MEQ PO SCH (12:00)
[2023-06-16] MEDS ORDERED: MAG-OX TAB PO SCH (12:00)
[2023-06-16 14:28] VITALS: BP 111/70; PULSE 98; RESP 20; TEMP 98.3; O2SAT 97
== END 2023-06-16 13:20 | disposition home or self-care (01) | DRG 193 ==
LOC: MED/SURG 17:21
PROVIDERS: ADMIT Obstetrics & Gynecology Obstetrics; ATTEND Obstetrics & Gynecology Obstetrics
DX: J86.9 Pyothorax without fistula; R26.89 Other abnormalities of gait and mobility; E83.42 Hypomagnesemia; J18.8 Other pneumonia, unspecified organism; J90 Pleural effusion, not elsewhere classified; Z72.0 Tobacco use